=== PATIENT | male | born 1970 | race Hispanic/Latino ===

== ENCOUNTER 2018-11-03 18:06 | Emergency (ER) | payer SELFPAY ==
--- NOTE | 2018-11-03 18:20 | Emergency Department Report ---
Blank Doc - Documentation Documentation: This is a 47-year-old male that presents with redness and pain to left abdominal area. Stated believes it was a spider bite. Denies any other complaints or symptoms. This initial assessment diagnostic orders/clinical plan/treatment(s) is/are subject to change based on patient's health status, clinical progression and re- assessment by fellow clinical providers in the ED. Further treatment and workup at subsequent clinical providers discretion. Patient/guardians urged not to elope from ED s their condition may be serious if not clinically assessed and managed. Initial orders include: 1-Patient sent to [facility] for further evaluation and treatment
[2018-11-03] MEDS ORDERED: NACL 0.9% 1000 ML 1,000 ML IV ONE ×2 (21:55→23:11)
[2018-11-03] MEDS ORDERED: ZOFRAN IV ONE (21:55)
[2018-11-03] MEDS ORDERED: MORPHINE IV ONE (21:55)
--- NOTE | 2018-11-03 21:59 | Emergency Department Report ---
- General Chief complaint: Skin/Abscess/Foreign Body Stated complaint: BITE ON ABD/SWOLLEN Time Seen by Provider: 11/03/18 18:18 Source: patient Mode of arrival: Ambulatory Limitations: No Limitations - History of Present Illness Initial comments: 47-year-old male comes in for possible inset bite to the left side of abdomen. Patient reports redness and tenderness. Patient states this is been about 3-4 days. Patient reports he was cleaning out his garage. Days ago and feels he may have gotten bit by some insect. Patient thinks it may have been a spider. Patient denies any nausea or vomiting but reports he has had chills and feeling hot. He denies any allergies to medication reports he has diet- controlled hypertension. He currently takes no medications. MD complaint: insect bite/sting, abscess/boil -: days(s) (3-4) Tetanus Up to Date: unsure Severity: severe Severity scale (0 -10): 10 Quality: burning, aching, sharp Consistency: constant Improves with: none Worsens with: palpation, movement Associated symptoms: fever, chills, malaise Treatments Prior to Arrival: none - Related Data Previous Rx's Medication Instructions Recorded Last Taken Type Acetaminophen/Codeine [Tylenol 1 tab PO Q6H PRN #12 tab 11/04/18 Unknown Rx /Codeine # 3 tab] Cephalexin [Keflex] 500 mg PO BID #20 capsule 11/04/18 Unknown Rx Ibuprofen [Motrin 800 MG tab] 800 mg PO Q8HR PRN #30 tablet 11/04/18 Unknown Rx Allergies Allergy/AdvReac Type Severity Reaction Status Date / Time No Known Allergies Allergy Unverified 11/03/18 18:23 Abscess Boil HPI - HPI Chief Complaint: Skin/Abscess/Foreign Body Stated Complaint: BITE ON ABD/SWOLLEN Time Seen by Provider: 11/03/18 18:18 Home Medications: Previous Rx's Medication Instructions Recorded Last Taken Type Acetaminophen/Codeine [Tylenol 1 tab PO Q6H PRN #12 tab 11/04/18 Unknown Rx /Codeine # 3 tab] Cephalexin [Keflex] 500 mg PO BID #20 capsule 11/04/18 Unknown Rx Ibuprofen [Motrin 800 MG tab] 800 mg PO Q8HR PRN #30 tablet 11/04/18 Unknown Rx Allergies/Adverse Reactions: Allergies Allergy/AdvReac Type Severity Reaction Status Date / Time No Known Allergies Allergy Unverified 11/03/18 18:23 ED Review of Systems ROS: Stated complaint: BITE ON ABD/SWOLLEN Other details as noted in HPI Comment: All other systems reviewed and negative Constitutional: chills, fever Skin: rash ED Past Medical Hx - Past Medical History Hx Hypertension: Yes (diet controlled) Hx Dementia: Yes (diet controlled) - Surgical History Past Surgical History?: No - Social History Smoking Status: Former Smoker Substance Use Type: None - Medications Home Medications: Home Medications Medication Instructions Recorded Confirmed Last Taken Type Acetaminophen/Codeine [Tylenol 1 tab PO Q6H PRN #12 tab 11/04/18 Unknown Rx /Codeine # 3 tab] Cephalexin [Keflex] 500 mg PO BID #20 capsule 11/04/18 Unknown Rx Ibuprofen [Motrin 800 MG tab] 800 mg PO Q8HR PRN #30 tablet 11/04/18 Unknown Rx ED Physical Exam - General Limitations: No Limitations General appearance: alert, in no apparent distress - Eye Eye exam: Present: EOMI - ENT ENT exam: Present: mucous membranes moist - Neck Neck exam: Present: full ROM - Respiratory Respiratory exam: Present: normal lung sounds bilaterally. Absent: respiratory distress - Cardiovascular Cardiovascular Exam: Present: tachycardia - GI/Abdominal GI/Abdominal exam: Present: soft, tenderness. Absent: distended - Extremities Exam Extremities exam: Present: full ROM - Neurological Exam Neurological exam: Present: alert, oriented X3 - Psychiatric Psychiatric exam: Present: normal affect, normal mood - Expanded Skin Exam Expanded Type of lesion: Present: abscess Distribution of rash: abdomen Description of rash: Present: tenderness, erythematous, swelling, papular, blisters, indurated. Absent: fluctuant ED Course Vital Signs 11/03/18 11/03/18 11/03/18 18:19 22:43 22:44 Temperature 99.7 F H 99.5 F Pulse Rate 105 H 105 H Respiratory 18 16 16 Rate Blood Pressure 158/109 Blood Pressure 136/84 [Left] O2 Sat by Pulse 98 95 Oximetry ED Medical Decision Making - Lab Data Result diagrams: 11/03/18 22:05 11/03/18 22:05 - Radiology Data Radiology results: report reviewed FINAL REPORT PROCEDURE: CT ABDOMEN PELVIS W CON TECHNIQUE: Computerized axial tomography of the abdomen and pelvis was performed after the IV injection of iodinated nonionic contrast. HISTORY: abdominal abscess pain redness and tenderness LEFT SIDE MID ABD COMPARISON: No prior studies are available for comparison. FINDINGS: Visualized lower thorax: No significant abnormality. Liver: Liver is enlarged and fatty. There is no discrete mass.. Spleen: Normal size and attenuation. Gallbladder and biliary system: Normal. Pancreas: Normal. Adrenals: Normal. Kidneys: Normal. GI tract: There is no bowel obstruction, colitis or enteritis. The appendix is normal.. Lymph nodes and mesentery: Normal. Vasculature: Normal. Bladder: Normal. Reproductive organs: Normal. Peritoneum: There is no ascites, free air, abscess or adenopathy.. Musculoskeletal structures: No significant abnormality. Other: There is skin thickening and induration of the subcutaneous fat in the anterior/left side of the abdomen. This suggests cellulitis. There are enlarged reactive left inguinal lymph nodes. There is no discrete mass or abscess. There is no subcutaneous air or foreign body.. IMPRESSION: Liver is enlarged and fatty. There is no discrete mass.. There is no bowel obstruction, colitis or enteritis. The appendix is normal.. There is no ascites, free air, abscess or adenopathy.. There is skin thickening and induration of the subcutaneous fat in the anterior/left side of the abdomen. This suggests cellulitis. There are enlarged reactive left inguinal lymph nodes. There is no discrete mass or abscess. There is no subcutaneous air or foreign body.. Transcribed By: CO Dictated By: MAIA LUNDY MD Electronically Authenticated By: MAIA LUNDY MD Signed Date/Time: 11/04/1834 DD/ TD/TT: 11/04/1832 - Medical Decision Making Patient has been evaluated by this provider in fast track. CBC CMP lactic acid CRP ESR urinalysis CT of abdomen of contrast, blood cultures 2 Patient came back with elevated lactic acid of 3.0, CRP of 8.5, mildly elevated WBCs on serum, CT of abdomen shows cellulitis. Elevated blood glucose of 512 Patient was resuscitated with normal saline, clindamycin 600 mg IV, 8 units of regular insulin IV, morphine and Zofran for pain and nausea. Patient's blood glucose decreased to 212, lactic acid normal last too 1.30, discussed case with Dr. Gaines. Patient be discharged home on Keflex by mouth 500 mg twice a day for 10 days instructions on diet modification for elevated blood glucose with a referral to primary care provider if for workup for diabetes and follow-up for cellulitis. Patient can take Tylenol and or Motrin for pain management. Patient needs to increase his fluid intake. Information for ADA diet be provided to patient. - Differential Diagnosis abscess, brown recluse bite, cellulitis Critical Care Time: Yes Critical care time in (mins) excluding proc time.: 60 Critical care attestation.: If time is entered above; I have spent that time in minutes in the direct care of this critically ill patient, excluding procedure time. ED Disposition Clinical Impression: Hyperglycemia, Cellulitis of abdominal wall, Sepsis due to cellulitis Disposition: DC-01 TO HOME OR SELFCARE Is pt being admited?: No Does the pt Need Aspirin: No Condition: Stable Instructions: Cellulitis (ED), Meal Planning with Diabetes Exchanges (DC) Additional Instructions: Antibiotics as prescribed pain medication as needed. Report from to follow up with the primary care provider as it appears that he may be coming down with diabetes. Prescriptions: Acetaminophen/Codeine [Tylenol /Codeine # 3 tab] 1 tab PO Q6H PRN #12 tab PRN Reason: Pain , Severe (7-10) Cephalexin [Keflex] 500 mg PO BID #20 capsule Ibuprofen [Motrin 800 MG tab] 800 mg PO Q8HR PRN #30 tablet PRN Reason: Pain , Severe (7-10) Referrals: GOKUL REECE MD [Primary Care Provider] - 3-5 Days [facility] [Outside] - 3-5 Days [facility] [Outside] - 3-5 Days [facility] [Outside] - 3-5 Days Forms: Work/School Release Form(ED)
[2018-11-03 22:51] LABS: Basophils # (Auto) 0.1 K/mm3 (0.0-0.1); Basophils % (Auto) 0.6 % (0.0-1.8); Eosinophils # (Auto) 0.1 K/mm3 (0.0-0.4); Eosinophils % (Auto) 0.8 % (0.0-4.3); Hematocrit 44.8 % (35.5-45.6); Hemoglobin 14.7 gm/dl (11.8-15.2); Lymphocytes # (Auto) 1.7 K/mm3 (1.2-5.4); Lymphocytes % (Auto) 15.6 % (13.4-35.0); Mean Corpuscular HGB Conc 33 % (32-34); Mean Corpuscular Volume 90 fl (84-94); Monocytes # (Auto) 0.9 K/mm3 (0.0-0.8); Platelet Count 284 K/mm3 (140-440); Red Blood Count 4.98 M/mm3 (3.65-5.03); Red Cell Distribution Width 12.7 % (13.2-15.2)
[2018-11-03 23:02] LABS: Alanine Aminotransferase 16 units/L (7-56); BUN/Creatinine Ratio 13; Blood Urea Nitrogen 10 mg/dL (9-20); Calcium 9.2 mg/dL (8.4-10.2); Hemolysis Index 4
[2018-11-03] MEDS ORDERED: HumuLIN R IV ONE (23:11)
[2018-11-03] MEDS ORDERED: CLEOCIN 600 MG/50 mL 600 MG/50 ML BAG IV ONE (23:15)
[2018-11-03 23:24] LABS: Erythrocyte Sedimentation Rate 31 mm/Hr (0-20)
--- NOTE | 2018-11-04 00:35 | Cat Scan Report ---
FINAL REPORT PROCEDURE: CT ABDOMEN PELVIS W CON TECHNIQUE: Computerized axial tomography of the abdomen and pelvis was performed after the IV inject ion of iodinated nonionic contrast. HISTORY: abdominal abscess pain redness and tenderness LEFT SIDE MID ABD COMPARISON: No prior studies are available for comparison. FINDINGS: Visualized lower thorax: No significant abnormality. Liver: Liver is enlarged and fatty. There is no discrete mass.. Spleen: Normal size and attenuation. Gallbladder and biliary system: Normal. Pancreas: Normal. Adrenals: Normal. Kidneys: Normal. GI tract: There is no bowel obstruction, colitis or enteritis. The appendix is normal.. Lymph nodes and mesentery: Normal. Vasculature: Normal. Bladder: Normal. Reproductive organs: Normal. Peritoneum: There is no ascites, free air, abscess or adenopathy.. Musculoskeletal structures: No significant abnormality. Other: There is skin thickening and induration of the subcutaneous fat in the anterior/left side of t he abdomen. This suggests cellulitis. There are enlarged reactive left inguinal lymph nodes. There is no discrete mass or abscess. There is no subcutaneous air or foreign body.. IMPRESSION: Liver is enlarged and fatty. There is no discrete mass.. There is no bowel obstruction, colitis or enteritis. The appendix is normal.. There is no ascites, free air, abscess or adenopathy.. There is skin thickening and induration of the subcutaneous fat in the anterior/left side of the abdo men. This suggests cellulitis. There are enlarged reactive left inguinal lymph nodes. There is no dis crete mass or abscess. There is no subcutaneous air or foreign body..
[2018-11-04 01:28] LABS: Bilirubin,Urine NEG (Negative); Blood,Urine NEG (Negative); Color,Urine Straw (Yellow); Protein,Urine <15 mg/dL mg/dL (Negative); Urobilinogen,Urine < 2.0 mg/dL (<2.0); WBC,Urine < 1.0 /HPF (0.0-6.0)
[2018-11-04 02:05] VITALS: BP 152/98
== END 2018-11-04 02:17 | disposition home or self-care (01) ==
LOC: ED 18:06
DX: L03.311 Cellulitis of abdominal wall (principal); A41.89 Other specified sepsis; L03.90 Cellulitis, unspecified; R73.9 Hyperglycemia, unspecified
CPT/HCPCS: 36415; 74177; 80053; 81001; 82140; 82962; 85025; 85652; 86140; 87040; 96365; 96375; 99291; J2270; J2405; J7030; Q9967; J1815

== ENCOUNTER 2019-03-04 13:32 | Emergency (ER) | payer SELFPAY ==
[2019-03-04 13:43] VITALS: BP 158/116
--- NOTE | 2019-03-04 13:44 | Emergency Department Report ---
- General Chief complaint: Skin/Abscess/Foreign Body Stated complaint: POSS ABCESS Time Seen by Provider: 03/04/19 13:39 Source: patient Mode of arrival: Ambulatory Limitations: No Limitations - History of Present Illness Initial comments: This is a 48-year-old male that presents with left hip area redness and pain. Stated is unsure if something bite him. Patient denies any pus or drainage. denies any fever, chills, headache, stiff neck, nausea, vomiting, chest pain, shortness of breathe, numbness or tingling. Patient denies any allergies. MD complaint: insect bite/sting -: days(s) Severity: mild Severity scale (0 -10): 8 Quality: aching Consistency: constant Improves with: none Worsens with: none Associated symptoms: denies other symptoms Treatments Prior to Arrival: none - Related Data Previous Rx's Medication Instructions Recorded Last Taken Type Acetaminophen/Codeine [Tylenol 1 tab PO Q6H PRN #12 tab 11/04/18 Unknown Rx /Codeine # 3 tab] Cephalexin [Keflex] 500 mg PO BID #20 capsule 11/04/18 Unknown Rx Ibuprofen [Motrin 800 MG tab] 800 mg PO Q8HR PRN #30 tablet 11/04/18 Unknown Rx Acetaminophen/Codeine [Tylenol 1 tab PO Q6H PRN #12 tab 03/04/19 Unknown Rx /Codeine # 3 tab] Clindamycin [Clindamycin CAP] 300 mg PO Q8H #21 cap 03/04/19 Unknown Rx Allergies Allergy/AdvReac Type Severity Reaction Status Date / Time No Known Allergies Allergy Verified 03/04/19 13:34 Abscess Boil HPI - HPI Chief Complaint: Skin/Abscess/Foreign Body Stated Complaint: POSS ABCESS Time Seen by Provider: 03/04/19 13:39 Home Medications: Previous Rx's Medication Instructions Recorded Last Taken Type Acetaminophen/Codeine [Tylenol 1 tab PO Q6H PRN #12 tab 11/04/18 Unknown Rx /Codeine # 3 tab] Cephalexin [Keflex] 500 mg PO BID #20 capsule 11/04/18 Unknown Rx Ibuprofen [Motrin 800 MG tab] 800 mg PO Q8HR PRN #30 tablet 11/04/18 Unknown Rx Acetaminophen/Codeine [Tylenol 1 tab PO Q6H PRN #12 tab 03/04/19 Unknown Rx /Codeine # 3 tab] Clindamycin [Clindamycin CAP] 300 mg PO Q8H #21 cap 03/04/19 Unknown Rx Allergies/Adverse Reactions: Allergies Allergy/AdvReac Type Severity Reaction Status Date / Time No Known Allergies Allergy Verified 03/04/19 13:34 ED Review of Systems ROS: Stated complaint: POSS ABCESS Other details as noted in HPI Constitutional: denies: chills, fever Eyes: denies: eye pain, eye discharge, vision change ENT: denies: ear pain, throat pain Respiratory: denies: cough, shortness of breath, wheezing Cardiovascular: denies: chest pain, palpitations Endocrine: no symptoms reported Gastrointestinal: denies: abdominal pain, nausea, diarrhea Genitourinary: denies: urgency, dysuria Musculoskeletal: denies: back pain, joint swelling, arthralgia Skin: denies: rash, lesions Neurological: denies: headache, weakness, paresthesias Psychiatric: denies: anxiety, depression Hematological/Lymphatic: denies: easy bleeding, easy bruising ED Past Medical Hx - Past Medical History Previous Medical History?: No Hx Hypertension: Yes (diet controlled) Hx Dementia: Yes (diet controlled) - Surgical History Past Surgical History?: No - Social History Smoking Status: Former Smoker Substance Use Type: None - Medications Home Medications: Home Medications Medication Instructions Recorded Confirmed Last Taken Type Acetaminophen/Codeine [Tylenol 1 tab PO Q6H PRN #12 tab 11/04/18 Unknown Rx /Codeine # 3 tab] Cephalexin [Keflex] 500 mg PO BID #20 capsule 11/04/18 Unknown Rx Ibuprofen [Motrin 800 MG tab] 800 mg PO Q8HR PRN #30 tablet 11/04/18 Unknown Rx Acetaminophen/Codeine [Tylenol 1 tab PO Q6H PRN #12 tab 03/04/19 Unknown Rx /Codeine # 3 tab] Clindamycin [Clindamycin CAP] 300 mg PO Q8H #21 cap 03/04/19 Unknown Rx ED Physical Exam - General Limitations: No Limitations General appearance: alert, in no apparent distress - Head Head exam: Present: atraumatic, normocephalic - Extremities Exam Extremities exam: Present: normal inspection, full ROM, tenderness, normal capillary refill, other (3 cm x 3 cm circular erythema with tenderness. No abscess. No cellulitis. No pus or drainge.). Absent: joint swelling - Back Exam Back exam: Present: normal inspection, full ROM - Neurological Exam Neurological exam: Present: alert, oriented X3 - Psychiatric Psychiatric exam: Present: normal affect, normal mood - Skin Skin exam: Present: warm, dry, intact, normal color. Absent: rash ED Course - Reevaluation(s) Reevaluation #1: 03/04/19 13:41 Patient is speaking in full sentences with no signs of distress noted. ED Medical Decision Making - Medical Decision Making This is a 48-year-old male that presents with cellulitis. Patient is stable and was examined by me. The area of redness and cellulitis has been outlined with a permanent marker. Patient will be discharged with Clinda. Patient was instructed to Follow-up with a primary care doctor in 3-5 days or if symptoms worsen and continue return to emergency room as soon as possible. At time of discharge, the patient does not seem toxic or ill in appearance. No acute signs of distress noted. Patient agrees to discharge treatment plan of care. No further questions noted by the patient. Critical care attestation.: If time is entered above; I have spent that time in minutes in the direct care of this critically ill patient, excluding procedure time. ED Disposition Clinical Impression: Cellulitis Disposition: DC-01 TO HOME OR SELFCARE Is pt being admited?: No Does the pt Need Aspirin: No Condition: Stable Instructions: Cellulitis (ED), Acetaminophen/Codeine (By mouth) Additional Instructions: Follow-up with a primary care doctor in 3-5 days or if symptoms worsen and continue return to the emergency department as soon as possible. Prescriptions: Clindamycin [Clindamycin CAP] 300 mg PO Q8H #21 cap Acetaminophen/Codeine [Tylenol /Codeine # 3 tab] 1 tab PO Q6H PRN #12 tab PRN Reason: Pain , Severe (7-10) Referrals: PRIMARY CARE, [Referring] - 3-5 Days MAURICIO SUN MD [Staff Physician] - 3-5 Days [facility] [Outside] - 3-5 Days [facility] [Outside] - 3-5 Days Forms: Work/School Release Form(ED)
== END 2019-03-04 14:19 | disposition home or self-care (01) ==
LOC: ED 13:32
DX: L03.115 Cellulitis of right lower limb (principal); I10 Essential (primary) hypertension
CPT/HCPCS: 99282

== ENCOUNTER 2019-03-06 09:42 | Inpatient (IN) | payer SELFPAY ==
--- NOTE | 2019-03-06 09:49 | Event Note ---
ED Screening Note ED Screening Note: HERE 2 DAYS AGO; SEEN BY DANA; SENT HOME ON CLINDA WORSENING L FLANK ABSCESS AND CELLULITIS WITH PAIN RAD TO LEG POS CHILLS TACHY IN TRIAGE ? BITE PER PT TAKING CLINDA This initial assessment/diagnostic orders/clinical plan/treatment(s) is/are subject to change based on patients health status, clinical progression and re- assessment by fellow clinical providers in the ED. Further treatment and workup at subsequent clinical providers discretion. Patient/guardian urged not to elope from the ED as their condition may be serious if not clinically assessed and managed. Initial orders include:
[2019-03-06] MEDS ORDERED: VANCOMYCIN/NS 1 GM/250 ML 1 GM/250 ML BAG IV ONE ×3 (10:09→11:00)
--- NOTE | 2019-03-06 10:15 | Emergency Department Report ---
- General Chief complaint: Skin/Abscess/Foreign Body Stated complaint: POSS SPIDER BITE Time Seen by Provider: 03/06/19 10:04 Source: patient Mode of arrival: Ambulatory Limitations: No Limitations - History of Present Illness Initial comments: Patient is a 48-year-old male with no significant past medical history except for previous history of diabetes for which she moves approximately 110 bound and stated that since then his blood sugar was fine. Patient presented to the ER complaining of left flank skin lesion for the last 5 days. Patient was seen here 2 days ago prescribed clindamycin but patient stated that his symptoms are not improving. MD complaint: abscess/boil -: days(s) (5) Location: back - Related Data Previous Rx's Medication Instructions Recorded Last Taken Type Acetaminophen/Codeine [Tylenol 1 tab PO Q6H PRN #12 tab 11/04/18 Unknown Rx /Codeine # 3 tab] Cephalexin [Keflex] 500 mg PO BID #20 capsule 11/04/18 Unknown Rx Ibuprofen [Motrin 800 MG tab] 800 mg PO Q8HR PRN #30 tablet 11/04/18 Unknown Rx Acetaminophen/Codeine [Tylenol 1 tab PO Q6H PRN #12 tab 03/04/19 Unknown Rx /Codeine # 3 tab] Clindamycin [Clindamycin CAP] 300 mg PO Q8H #21 cap 03/04/19 Unknown Rx Allergies Allergy/AdvReac Type Severity Reaction Status Date / Time No Known Allergies Allergy Verified 03/06/19 09:42 Abscess Boil HPI - HPI Chief Complaint: Skin/Abscess/Foreign Body Stated Complaint: POSS SPIDER BITE Time Seen by Provider: 03/06/19 10:04 Home Medications: Previous Rx's Medication Instructions Recorded Last Taken Type Acetaminophen/Codeine [Tylenol 1 tab PO Q6H PRN #12 tab 11/04/18 Unknown Rx /Codeine # 3 tab] Cephalexin [Keflex] 500 mg PO BID #20 capsule 11/04/18 Unknown Rx Ibuprofen [Motrin 800 MG tab] 800 mg PO Q8HR PRN #30 tablet 11/04/18 Unknown Rx Acetaminophen/Codeine [Tylenol 1 tab PO Q6H PRN #12 tab 03/04/19 Unknown Rx /Codeine # 3 tab] Clindamycin [Clindamycin CAP] 300 mg PO Q8H #21 cap 03/04/19 Unknown Rx Allergies/Adverse Reactions: Allergies Allergy/AdvReac Type Severity Reaction Status Date / Time No Known Allergies Allergy Verified 03/06/19 09:42 ED Review of Systems ROS: Stated complaint: POSS SPIDER BITE Other details as noted in HPI Comment: All other systems reviewed and negative Constitutional: denies: chills, fever Respiratory: denies: cough, orthopnea, shortness of breath, SOB with exertion, SOB at rest, wheezing Cardiovascular: denies: chest pain, palpitations Gastrointestinal: denies: abdominal pain, nausea, vomiting, diarrhea, constipation, hematemesis, melena Skin: lesions Neurological: denies: headache, weakness, numbness, paresthesias, confusion ED Past Medical Hx - Past Medical History Hx Hypertension: Yes (diet controlled) Hx Dementia: Yes (diet controlled) - Social History Smoking Status: Never Smoker Substance Use Type: Alcohol - Medications Home Medications: Home Medications Medication Instructions Recorded Confirmed Last Taken Type Acetaminophen/Codeine [Tylenol 1 tab PO Q6H PRN #12 tab 11/04/18 Unknown Rx /Codeine # 3 tab] Cephalexin [Keflex] 500 mg PO BID #20 capsule 11/04/18 Unknown Rx Ibuprofen [Motrin 800 MG tab] 800 mg PO Q8HR PRN #30 tablet 11/04/18 Unknown Rx Acetaminophen/Codeine [Tylenol 1 tab PO Q6H PRN #12 tab 03/04/19 Unknown Rx /Codeine # 3 tab] Clindamycin [Clindamycin CAP] 300 mg PO Q8H #21 cap 03/04/19 Unknown Rx ED Physical Exam - General Limitations: No Limitations General appearance: alert, in no apparent distress - Head Head exam: Present: atraumatic, normocephalic, normal inspection - Eye Eye exam: Present: normal appearance, PERRL - ENT ENT exam: Present: normal exam, normal orophraynx, mucous membranes moist - Neck Neck exam: Present: normal inspection, full ROM. Absent: tenderness, meningismus, lymphadenopathy, thyromegaly - Respiratory Respiratory exam: Present: normal lung sounds bilaterally - Cardiovascular Cardiovascular Exam: Present: regular rate, normal rhythm, normal heart sounds - GI/Abdominal GI/Abdominal exam: Present: soft, normal bowel sounds. Absent: distended, tenderness, guarding, rebound, rigid, organomegaly, mass, bruit, pulsatile mass, hernia - Extremities Exam Extremities exam: Present: normal inspection, full ROM, normal capillary refill. Absent: calf tenderness - Neurological Exam Neurological exam: Present: alert, oriented X3, CN II-XII intact, normal gait, reflexes normal - Psychiatric Psychiatric exam: Present: normal mood - Skin Skin exam: Present: other (3 cm 2 cm induration and redness to the left flank just above the iliac crest, nonfluctuant.) ED Course Vital Signs 03/06/19 09:46 Temperature 98.9 F Pulse Rate 103 H Respiratory 18 Rate Blood Pressure 150/98 O2 Sat by Pulse 98 Oximetry ED Medical Decision Making - Lab Data Result diagrams: 03/06/19 10:00 03/06/19 10:00 - Medical Decision Making Patient is a 48-year-old male with no significant past medical history except for previous history of diabetes for which she moves approximately 110 bound and stated that since then his blood sugar was fine. Patient presented to the ER complaining of left flank skin lesion for the last 5 days. Patient was seen here 2 days ago prescribed clindamycin but patient stated that his symptoms are not improving. The patient received 2 g of vancomycin. Patient found to have a blood sugar of 460. Patient is not on any diabetic medication. Patient obviously failed outpatient treatment for cellulitis. Discussed the patient was Dr. Kimball, he agreed to admit the patient to medical service. Critical care attestation.: If time is entered above; I have spent that time in minutes in the direct care of this critically ill patient, excluding procedure time. ED Disposition Clinical Impression: Cellulitis, Hyperglycemia, Hyponatremia Disposition: OP ADMIT IP TO THIS HOSP Is pt being admited?: Yes Condition: Stable
[2019-03-06 10:28] LABS: Hematocrit 44.8 % (35.5-45.6); Hemoglobin 15.4 gm/dl (11.8-15.2); Mean Corpuscular HGB Conc 34 % (32-34); Mean Corpuscular Volume 90 fl (84-94); Platelet Count 277 K/mm3 (140-440); Red Blood Count 4.98 M/mm3 (3.65-5.03); Red Cell Distribution Width 12.7 % (13.2-15.2)
[2019-03-06 10:30] LABS: BUN/Creatinine Ratio 13; Blood Urea Nitrogen 12 mg/dL (9-20); Calcium 9.3 mg/dL (8.4-10.2); Hemolysis Index 12
[2019-03-06] MEDS ORDERED: VANCOMYCIN 2,000 MG in NACL 0.9% 500 ML 500 ML IV ONE ×2 (10:30→22:00)
[2019-03-06] MEDS ORDERED: HumuLIN R IV ONE ×2 (11:47→15:40)
[2019-03-06] MEDS ORDERED: ZOFRAN IV ONE (12:14)
[2019-03-06] MEDS ORDERED: MORPHINE IV ONE (12:14)
[2019-03-06] MEDS ORDERED: NACL 0.9% 1000 ML 1,000 ML IV ONE (12:14)
[2019-03-06] MEDS ORDERED: HumuLIN R ONE (16:09)
[2019-03-06] MEDS ORDERED: ZOFRAN IV PRN (17:55)
[2019-03-06] MEDS ORDERED: SODIUM CHLORIDE FLUSH SYRINGE 10 ML IV PRN (17:55)
[2019-03-06] MEDS ORDERED: TYLENOL PO PRN (17:55)
--- NOTE | 2019-03-06 17:55 | History and Physical Report ---
History of Present Illness Date of examination: 03/06/19 Date of admission: 03/06/19 13:27 Chief complaint: Abscess L Flank for 1 week History of present illness: 48-year-old male with no significant past medical history except for previous history of diabetes comes in for L Flank redness and pain. Patient was seen in this ER and was prescribed Clindamycin for possible early abscess just avbove Lt Iliac crest. Has poorly contolled Diabetes b/c of noncompliance No fever or chills Past Medical History Hx Hypertension: Yes (diet controlled) Hx Dementia: Yes (diet controlled) SURGICAL History no Social History Smoking Status: Never Smoker Substance Use Type: Alcohol FH N/a Review of Systems ROS: Stated complaint: POSS SPIDER BITE Other details as noted in HPI Comment: All other systems reviewed and negative Constitutional: denies: chills, fever Respiratory: denies: cough, orthopnea, shortness of breath, SOB with exertion, SOB at rest, wheezing Cardiovascular: denies: chest pain, palpitations Gastrointestinal: denies: abdominal pain, nausea, vomiting, diarrhea, constipation, hematemesis, melena Skin: lesions Neurological: denies: headache, weakness, numbness, paresthesias, confusion Medications and Allergies Allergies Allergy/AdvReac Type Severity Reaction Status Date / Time No Known Allergies Allergy Verified 03/06/19 09:42 Home Medications Medication Instructions Recorded Confirmed Last Taken Type Clindamycin [Clindamycin CAP] 300 mg PO Q8H #21 cap 03/04/19 03/06/19 03/06/19 04:00 Rx Exam - Constitutional Vitals: Temp Pulse Resp BP Pulse Ox 99.6 F 100 H 22 145/85 97 03/06/19 17:04 03/06/19 17:04 03/06/19 17:04 03/06/19 17:04 03/06/19 17:04 General appearance: Present: no acute distress, well-nourished - EENT Eyes: Present: PERRL ENT: hearing intact, clear oral mucosa - Neck Neck: Present: supple, normal ROM - Respiratory Respiratory effort: normal Respiratory: bilateral: CTA - Cardiovascular Heart rate: 78 Rhythm: regular Heart Sounds: Present: S1 & S2. Absent: rub, click - Extremities Extremities: no ischemia, pulses symmetrical, No edema Peripheral Pulses: within normal limits - Abdominal General gastrointestinal: Present: soft, tender, non-distended, normal bowel sounds, other (Abscess L Flank just above L iliac crest 5 cm x 5cm) Male genitourinary: Present: normal - Integumentary Integumentary: Present: clear, warm, dry - Musculoskeletal Musculoskeletal: gait normal, strength equal bilaterally - Psychiatric Psychiatric: appropriate mood/affect, intact judgment & insight - Neurologic Neurologic: CNII-XII intact, moves all extremities Results - Labs CBC & Chem 7: 03/06/19 10:00 03/06/19 10:00 Labs: Laboratory Last Values WBC 12.3 K/mm3 (4.5-11.0) H 03/06/19 10:00 RBC 4.98 M/mm3 (3.65-5.03) 03/06/19 10:00 Hgb 15.4 gm/dl (11.8-15.2) H 03/06/19 10:00 Hct 44.8 % (35.5-45.6) 03/06/19 10:00 MCV 90 fl (84-94) 03/06/19 10:00 MCH 31 pg (28-32) 03/06/19 10:00 MCHC 34 % (32-34) 03/06/19 10:00 RDW 12.7 % (13.2-15.2) L 03/06/19 10:00 Plt Count 277 K/mm3 (140-440) 03/06/19 10:00 Sodium 129 mmol/L (137-145) L 03/06/19 10:00 Potassium 4.7 mmol/L (3.6-5.0) 03/06/19 10:00 Chloride 88.7 mmol/L (98-107) L 03/06/19 10:00 Carbon Dioxide 25 mmol/L (22-30) 03/06/19 10:00 20 mmol/L 03/06/19 10:00 BUN 12 mg/dL (9-20) 03/06/19 10:00 0.9 mg/dL (0.8-1.5) 03/06/19 10:00 Estimated GFR > 60 ml/min 03/06/19 10:00 13 % 03/06/19 10:00 Glucose 460 mg/dL (75-100) H 03/06/19 10:00 POC Glucose 233 (70-105) H 03/06/19 17:14 Calcium 9.3 mg/dL (8.4-10.2) 03/06/19 10:00 Assessment and Plan Advance Directives: Yes (FC) VTE prophylaxis?: Chemical Plan of care discussed with patient/family: Yes - Patient Problems (1) Carbuncle Current Visit: Yes Status: Acute Plan to address problem: On L flank IV Unasyn and IV Vancomucin Surgery consult (2) T2DM (type 2 diabetes mellitus) Current Visit: Yes Status: Chronic Qualifiers: Diabetes mellitus halfway insulin use: unspecified rodent exterminator insulin use status Plan to address problem: Poorly controlled Patient started on Novalog 70/30 bid and dose to be adjusted by primary team Novalog 70/30 vials available in [facility] for 25 to 30 $4 without prescription (3) DVT prophylaxis Current Visit: Yes Status: Acute Plan to address problem: Onlovenox
[2019-03-06] MEDS ORDERED: D50W (25GM) Syringe IV PRN (17:56)
[2019-03-06] MEDS ORDERED: IBUPROFEN PO PRN (17:56)
[2019-03-06] MEDS ORDERED: NACL 0.9% 1000 ML 1,000 ML IV SCH (18:00)
[2019-03-06] MEDS: HumuLIN R SUB-Q SCH ×2 (18:19→21:38)
[2019-03-06] MEDS ORDERED: VANCOMYCIN PHARMACY TO DOSE IV SCH (19:00)
[2019-03-06] MEDS: DILAUDID IV PRN (19:43)
[2019-03-06] MEDS: UNASYN/NS 3 GM/100 ML 3 GM/100 ML BAG IV SCH (19:44)
[2019-03-06] MEDS: PEPCID PO SCH (21:15)
[2019-03-06] MEDS: SODIUM CHLORIDE FLUSH SYRINGE 10 ML IV SCH (21:16)
[2019-03-06] MEDS ORDERED: HumaLOG SUB-Q SCH (22:00)
[2019-03-07] MEDS: UNASYN/NS 3 GM/100 ML 3 GM/100 ML BAG IV SCH ×4 (00:18→17:15)
[2019-03-07 05:51] LABS: Creatinine,Urine 56.4 mg/dL (0.1-20.0); Microalbumin/Creatinine Ratio 60.2 ug/mg
[2019-03-07 07:53] LABS: Basophils % (Auto) 0.6 % (0.0-1.8); Eosinophils # (Auto) 0.1 K/mm3 (0.0-0.4); Eosinophils % (Auto) 1.7 % (0.0-4.3); Hemoglobin 14.2 gm/dl (11.8-15.2); Lymphocytes # (Auto) 1.4 K/mm3 (1.2-5.4); Lymphocytes % (Auto) 19.5 % (13.4-35.0); Mean Corpuscular HGB Conc 35 % (32-34); Mean Corpuscular Volume 89 fl (84-94); Monocytes # (Auto) 0.8 K/mm3 (0.0-0.8); Monocytes % (Auto) 10.5 % (0.0-7.3); Platelet Count 261 K/mm3 (140-440); Red Blood Count 4.48 M/mm3 (3.65-5.03); Red Cell Distribution Width 12.8 % (13.2-15.2)
[2019-03-07 08:19] LABS: Alanine Aminotransferase 11 units/L (7-56); Albumin 3.3 g/dL (3.9-5); BUN/Creatinine Ratio 16; Blood Urea Nitrogen 11 mg/dL (9-20); Calcium 8.4 mg/dL (8.4-10.2); Hemolysis Index 1
--- NOTE | 2019-03-07 08:46 | Progress Note ---
Assessment and Plan Full consult dictated 48 y/o DM male. c/o L flank pain PE L flank abscess with surrounding cellulitis imp as above for I&D History of Present Illness Date of examination: 03/06/19 Date of admission: 03/06/19 13:27 Chief complaint: Abscess L Flank for 1 week History of present illness: 48-year-old male with no significant past medical history except for previous history of diabetes comes in for L Flank redness and pain. Patient was seen in this ER and was prescribed Clindamycin for possible early abscess just avbove Lt Iliac crest. Has poorly contolled Diabetes b/c of noncompliance No fever or chills Past Medical History Hx Hypertension: Yes (diet controlled) Hx Dementia: Yes (diet controlled) SURGICAL History no Social History Smoking Status: Never Smoker Substance Use Type: Alcohol Selected Entries 03/07/19 03/07/19 00:32 01:01 Temperature 98.3 F Respiratory 20 Rate Blood Pressure 134/77 [Right] Laboratory Tests 03/06/19 03/07/19 03/07/19 10:00 06:35 06:35 WBC 12.3 H 7.3 Hgb 14.2 Hct 40.0 Sodium 136 L D Potassium 3.8 Chloride 95.6 L BUN 11 Creatinine 0.7 L Laboratory Tests 03/06/19 03/07/19 10:00 06:35 Glucose 460 H 279 H Objective Vital Signs - 12hr 03/06/19 03/06/19 03/07/19 21:16 21:48 00:31 Temperature 98.6 F Pulse Rate 91 H 87 Respiratory 18 Rate Blood Pressure 145/99 Blood Pressure [Right] O2 Sat by Pulse 95 100 Oximetry 03/07/19 03/07/19 00:32 01:01 Temperature 98.3 F Pulse Rate Respiratory 20 Rate Blood Pressure Blood Pressure 134/77 [Right] O2 Sat by Pulse Oximetry - Labs 03/07/19 06:35 03/07/19 06:35 Diabetes panel 03/06/19 03/06/19 03/07/19 Range/Units 10:00 10:00 06:35 Sodium 129 L 136 L D (137-145) mmol/L Potassium 4.7 3.8 (3.6-5.0) mmol/L Chloride 88.7 L 95.6 L (98-107) mmol/L Carbon Dioxide 25 23 (22-30) mmol/L BUN 12 11 (9-20) mg/dL Creatinine 0.9 0.7 L (0.8-1.5) mg/dL Glucose 460 H 279 H (75-100) mg/dL Hemoglobin A1c 12.9 H (4-6) % Calcium 9.3 8.4 (8.4-10.2) mg/dL AST 10 (5-40) units/L ALT 11 (7-56) units/L Alkaline Phosphatase 82 (35-129) units/L Total Protein 6.6 (6.3-8.2) g/dL Albumin 3.3 L (3.9-5) g/dL Calcium panel 03/06/19 03/07/19 Range/Units 10:00 06:35 Calcium 9.3 8.4 (8.4-10.2) mg/dL Albumin 3.3 L (3.9-5) g/dL Pituitary panel 03/06/19 03/07/19 Range/Units 10:00 06:35 Sodium 129 L 136 L D (137-145) mmol/L Potassium 4.7 3.8 (3.6-5.0) mmol/L Chloride 88.7 L 95.6 L (98-107) mmol/L Carbon Dioxide 25 23 (22-30) mmol/L BUN 12 11 (9-20) mg/dL Creatinine 0.9 0.7 L (0.8-1.5) mg/dL Glucose 460 H 279 H (75-100) mg/dL Calcium 9.3 8.4 (8.4-10.2) mg/dL Adrenal panel 03/06/19 03/07/19 Range/Units 10:00 06:35 Sodium 129 L 136 L D (137-145) mmol/L Potassium 4.7 3.8 (3.6-5.0) mmol/L Chloride 88.7 L 95.6 L (98-107) mmol/L Carbon Dioxide 25 23 (22-30) mmol/L BUN 12 11 (9-20) mg/dL Creatinine 0.9 0.7 L (0.8-1.5) mg/dL Glucose 460 H 279 H (75-100) mg/dL Calcium 9.3 8.4 (8.4-10.2) mg/dL Total Bilirubin 0.40 (0.1-1.2) mg/dL AST 10 (5-40) units/L ALT 11 (7-56) units/L Alkaline Phosphatase 82 (35-129) units/L Total Protein 6.6 (6.3-8.2) g/dL Albumin 3.3 L (3.9-5) g/dL
--- NOTE | 2019-03-07 09:09 | Progress Note ---
Assessment and Plan Assessment and plan: Abscess left flank Admitted Surgeon consulted. I discussed with Dr. Harjeet Randhawa Unasyn and vancomycin For I and D Diabetes mellitus type 2 Uncontrolled Cont Novolin 70/30 bid and sliding scale Full code status History Interval history: Left flank abscess pain left flank Hospitalist Physical - Physical exam Narrative exam: Gen: Not in acute distress, lying in bed,obese HEENT: Normocephalic, atraumatic Neck: supple, no JVD Heart: S1 and S2 reg, no murmurs, rubs or gallop Lungs: Clear, no crackles, no wheeze Abd: soft, abscess lower part left flank, normal BS Ext: No edema, no clubbing, no cyanosis, Neuro: Awake,alert, oriented x 3, moves all ext, non focal Psych:Normal mood - Constitutional Vitals: Temp Pulse Resp BP Pulse Ox 98.3 F 87 20 134/77 100 03/07/19 00:32 03/07/19 00:31 03/07/19 00:32 03/07/19 01:01 03/07/19 00:31 General appearance: Present: no acute distress, well-nourished Results - Labs CBC & Chem 7: 03/07/19 06:35 03/07/19 06:35 Labs: Laboratory Last Values WBC 7.3 K/mm3 (4.5-11.0) 03/07/19 06:35 RBC 4.48 M/mm3 (3.65-5.03) 03/07/19 06:35 Hgb 14.2 gm/dl (11.8-15.2) 03/07/19 06:35 Hct 40.0 % (35.5-45.6) 03/07/19 06:35 MCV 89 fl (84-94) 03/07/19 06:35 MCH 32 pg (28-32) 03/07/19 06:35 MCHC 35 % (32-34) H 03/07/19 06:35 RDW 12.8 % (13.2-15.2) L 03/07/19 06:35 Plt Count 261 K/mm3 (140-440) 03/07/19 06:35 Lymph % (Auto) 19.5 % (13.4-35.0) 03/07/19 06:35 [place] % (Auto) 10.5 % (0.0-7.3) H 03/07/19 06:35 Eos % (Auto) 1.7 % (0.0-4.3) 03/07/19 06:35 Baso % (Auto) 0.6 % (0.0-1.8) 03/07/19 06:35 Lymph # 1.4 K/mm3 (1.2-5.4) 03/07/19 06:35 [place] # 0.8 K/mm3 (0.0-0.8) 03/07/19 06:35 Eos # 0.1 K/mm3 (0.0-0.4) 03/07/19 06:35 Baso # 0.0 K/mm3 (0.0-0.1) 03/07/19 06:35 Seg Neutrophils % 67.7 % (40.0-70.0) 03/07/19 06:35 Seg Neutrophils # 5.0 K/mm3 (1.8-7.7) 03/07/19 06:35 Sodium 136 mmol/L (137-145) L D 03/07/19 06:35 Potassium 3.8 mmol/L (3.6-5.0) 03/07/19 06:35 Chloride 95.6 mmol/L (98-107) L 03/07/19 06:35 Carbon Dioxide 23 mmol/L (22-30) 03/07/19 06:35 21 mmol/L 03/07/19 06:35 BUN 11 mg/dL (9-20) 03/07/19 06:35 0.7 mg/dL (0.8-1.5) L 03/07/19 06:35 Estimated GFR > 60 ml/min 03/07/19 06:35 16 % 03/07/19 06:35 Glucose 279 mg/dL (75-100) H 03/07/19 06:35 POC Glucose 343 (70-105) H 03/06/19 21:28 12.9 % (4-6) H 03/06/19 10:00 Calcium 8.4 mg/dL (8.4-10.2) 03/07/19 06:35 0.40 mg/dL (0.1-1.2) 03/07/19 06:35 AST 10 units/L (5-40) 03/07/19 06:35 ALT 11 units/L (7-56) 03/07/19 06:35 82 units/L (35-129) 03/07/19 06:35 6.6 g/dL (6.3-8.2) 03/07/19 06:35 3.3 g/dL (3.9-5) L 03/07/19 06:35 1.0 % 03/07/19 06:35 56.4 mg/dL (0.1-20.0) H 03/06/19 05:30 3.4 mg/dL (0.1-34.0) 03/06/19 05:30 Microalb/Creat Ratio 60.2 ug/mg 03/06/19 05:30 Active Medications - Current Medications Current Medications: Generic Name Dose Route Start Last Admin Trade Name Freq PRN Reason Stop Dose Admin Acetaminophen 650 mg 03/06/19 17:55 Tylenol PO Q4H PRN Pain MILD(1-3)/Fever >100.5/BROWNING Dextrose 50 ml 03/06/19 17:56 D50w (25gm) Syringe IV PRN PRN Hypoglycemia Famotidine 20 mg 03/06/19 22:00 03/06/19 21:15 Pepcid PO 20 mg BID TONY Administration Hydromorphone HCl 0.5 mg 03/06/19 17:56 03/06/19 19:43 Dilaudid IV 0.5 mg Q3H PRN Administration Pain , Severe (7-10) Sodium Chloride 1,000 mls @ 75 mls/hr 03/06/19 18:00 03/06/19 18:17 Nacl 0.9% 1000 Ml IV 03/07/19 11:00 75 mls/hr DIRECT TONY Administration Ampicillin Sodium/Sulbactam Sodium 3 gm in 100 mls @ 100 mls/hr 03/06/19 18:00 03/07/19 05:05 Unasyn/Ns 3 Gm/100 Ml IV 100 mls/hr Q6HR TONY Administration Protocol Vancomycin HCl 1,750 mg/ 535 mls @ 333.333 mls/hr 03/07/19 10:00 Sodium Chloride IV Q12H TONY Ibuprofen 600 mg 03/06/19 17:56 03/07/19 05:10 Ibuprofen PO 600 mg Q6H PRN Administration Pain, Mild (1-3) Insulin Human Isoph/Insulin Regular 15 unit 03/07/19 08:00 03/07/19 08:52 Humulin 70/30 SUB-Q Not Given BIDDIAB TONY Insulin Human Regular 0 units 03/06/19 18:00 03/06/19 21:38 Humulin R SUB-Q 6 units ACHS TONY Administration Protocol Ondansetron HCl 4 mg 03/06/19 17:55 Zofran IV Q8H PRN Nausea And Vomiting Sodium Chloride 10 ml 03/06/19 22:00 03/06/19 21:16 Sodium Chloride Flush Syringe 10 Ml IV 10 ml BID TONY Administration Sodium Chloride 10 ml 03/06/19 17:55 Sodium Chloride Flush Syringe 10 Ml IV PRN PRN LINE FLUSH
[2019-03-07] MEDS: HumuLIN R SUB-Q SCH ×4 (09:12→22:18)
[2019-03-07] MEDS ORDERED: SUBLIMAZE IV PRN (09:12)
[2019-03-07] MEDS ORDERED: ZOFRAN IV PRN (09:12)
[2019-03-07] MEDS: PEPCID PO SCH ×2 (10:54→22:17)
[2019-03-07] MEDS: SODIUM CHLORIDE FLUSH SYRINGE 10 ML IV SCH ×2 (10:54→22:18)
[2019-03-07] MEDS: VANCOMYCIN 1,750 MG in NACL 0.9% 500 ML 500 ML IV SCH ×2 (10:54→22:17)
--- NOTE | 2019-03-07 11:06 | Consultation ---
REASON FOR CONSULTATION: Left flank abscess. HISTORY OF PRESENT ILLNESS: The patient is a pleasant 48-year-old diabetic gentleman, who was admitted through the ER with a chief complaint of left flank pain. Physical exam at this time revealed a left flank abscess. PAST MEDICAL HISTORY: Pertinent for diabetes and hypertension. PAST SURGICAL HISTORY: Negative. ALLERGIES: No known allergies. MEDICATIONS: No medications as the patient currently has no PCP and is not taking anything for his diabetes. FAMILY HISTORY: Negative. SOCIAL HISTORY: Smoked 2 packs a day for 35 years, but states he quit approximately one year ago. Drinks daily beer. PHYSICAL EXAMINATION: GENERAL: At this time revealed the patient to be awake, alert, cooperative, in no acute distress. VITAL SIGNS: Show him to be afebrile with a temperature of 98.3, blood pressure is 134/77, pulse of 87, respirations of 20. ABDOMEN: Examination of the flank does indeed reveal fluctuance and significant erythema and tenderness consistent with the left flank subcutaneous abscess with surrounding cellulitis. LABORATORY DATA: Lab work at present includes a CBC, shows a white count of 12.3 on admission. Currently, white count is down to 7.3 as the patient is now on antibiotics. Electrolytes are essentially normal. Glucose on admission was noted to be 460, currently it is 279. IMPRESSION: At this time is that of a 48-year-old diabetic male with left flank abscess. Plan is to proceed with I and D of left flank abscess. Risks, indications, and complications have been reviewed with the patient, who understands and has signed his consent. I will proceed with I and D today. [facility]# [id number] ELMER/NTS
--- NOTE | 2019-03-07 14:05 | Anesthesia Day of Surgery ---
Anesthesia Day of Surgery - Day of Surgery Patient Examined: Yes Patient H&P Reviewed: Yes Patient is NPO: Yes
--- NOTE | 2019-03-07 14:08 | Anesthesia Consultation ---
Anesthesia Consult and Med Hx Date of service: 03/07/19 - Airway Anesthetic Teeth Evaluation: Good (LOOSE R UPPER) ROM Head & Neck: Adequate Mental/Hyoid Distance: Adequate Mallampati Class: Class I Intubation Access Assessment: Good - Pre-Operative Health Status ASA Pre-Surgery Classification: ASA2, Emergency Proposed Anesthetic Plan: General - Cardiovascular System Hx Hypertension: Yes (Lost 100 pounds and is off meds) - Endocrine Hx Non-Insulin Dependent Diabetes: Yes (NO RX)
[2019-03-07] MEDS ORDERED: SUBLIMAZE ONE (14:23)
[2019-03-07] MEDS ORDERED: ZOFRAN ONE ×2 (14:23→14:30)
[2019-03-07] MEDS ORDERED: DIPRIVAN 10 MG/ML IV ONE (14:24)
[2019-03-07] MEDS ORDERED: VERSED ONE (14:40)
[2019-03-07] MEDS ORDERED: HYDROGEN PEROXIDE ONE (15:20)
[2019-03-07] MEDS ORDERED: MARCAINE-EPI/PF 0.25%-1:200,000 INFILTRATI ONE ×2 (15:20→15:24)
[2019-03-07] MEDS ORDERED: MARCAINE-EPI 0.25%-1:200,000 INFILTRATI ONE (15:25)
--- NOTE | 2019-03-07 16:05 | Post Anesthesia Evaluation ---
- Post Anesthesia Evaluation Patient Participated: Yes Airway Patent: Yes Stable Respiratory Function: Yes Nausea/Vomiting: No Temp > 96.8F: Yes Pain Manageable: Yes Adequeate Hydration: Yes Anesthesia Complications: No Block Receding Appropriately: Not Applicable Patient on Ventilator: No
--- NOTE | 2019-03-07 18:32 | Operative Report ---
PREOPERATIVE DIAGNOSIS: Left flank abscess with surrounding cellulitis. POSTOPERATIVE DIAGNOSIS: Left flank abscess with surrounding cellulitis. PROCEDURE: I and D of aforementioned abscess. SURGEON: Lion Cosby MD ANESTHESIA: General. ESTIMATED BLOOD LOSS: Minimal. DRAINS: None. COMPLICATIONS: None. DESCRIPTION OF PROCEDURE: The patient was taken to the operating room and placed in a left lateral decubitus position. The patient was prepped and draped in usual sterile fashion. A #11 blade was used to incise the area. The abscess appeared, fair amount of purulence was noted. Aerobic and anaerobic cultures were taken. Hemostats and electrocautery were used to dissect the entire area. Digital manipulation was then also used to break up all the loculations. The abscess cavity itself was quite extensive which required an almost complete 2 inch iodoform packing gauze. The area was inspected for bleeding and noted to be dry. Then irrigated with a 50% Betadine peroxide solution. A 0.5% Marcaine with epinephrine was infiltrated over the area for postoperative pain relief. The cavity was then packed with the 2-inch iodoform gauze. Fluffs and pressure dressings applied. The patient tolerated the procedure well and left OR in stable condition. JOB# [id number] ELMER/AYE
[2019-03-07] MEDS: DILAUDID IV PRN (18:36)
[2019-03-07] MEDS: NORCO 5/325 PO PRN (22:20)
[2019-03-08] MEDS: DILAUDID IV PRN ×4 (00:45→20:32)
[2019-03-08] MEDS: UNASYN/NS 3 GM/100 ML 3 GM/100 ML BAG IV SCH ×2 (02:06→05:14)
[2019-03-08] MEDS: NORCO 5/325 PO PRN ×3 (05:13→17:40)
[2019-03-08 07:41] LABS: Basophils % (Auto) 0.6 % (0.0-1.8); Eosinophils # (Auto) 0.1 K/mm3 (0.0-0.4); Eosinophils % (Auto) 1.9 % (0.0-4.3); Hematocrit 41.7 % (35.5-45.6); Hemoglobin 14.4 gm/dl (11.8-15.2); Lymphocytes # (Auto) 1.5 K/mm3 (1.2-5.4); Lymphocytes % (Auto) 19.7 % (13.4-35.0); Mean Corpuscular HGB Conc 35 % (32-34); Mean Corpuscular Volume 89 fl (84-94); Monocytes # (Auto) 0.7 K/mm3 (0.0-0.8); Monocytes % (Auto) 9.6 % (0.0-7.3); Platelet Count 320 K/mm3 (140-440); Red Blood Count 4.67 M/mm3 (3.65-5.03); Red Cell Distribution Width 12.6 % (13.2-15.2)
[2019-03-08 08:07] LABS: BUN/Creatinine Ratio 15; Blood Urea Nitrogen 12 mg/dL (9-20); Calcium 8.4 mg/dL (8.4-10.2); Hemolysis Index 23
[2019-03-08] MEDS: HumuLIN R SUB-Q SCH ×4 (09:07→21:56)
[2019-03-08] MEDS: VANCOMYCIN 1,750 MG in NACL 0.9% 500 ML 500 ML IV SCH ×2 (09:32→21:38)
[2019-03-08] MEDS: NORVASC PO SCH ×2 (09:34→11:07)
[2019-03-08] MEDS: PEPCID PO SCH ×2 (09:34→21:37)
[2019-03-08] MEDS: SODIUM CHLORIDE FLUSH SYRINGE 10 ML IV SCH ×2 (09:57→21:38)
--- NOTE | 2019-03-08 11:03 | Consultation ---
History of Present Illness - Reason for Consult Consult date: 03/08/19 Abscess Left Flank Requesting physician: REX SCHULZ - History of Present Illness This patient is a 48-year-old male with a past medical history of diabetes that presented in the ED on 03/06/19 complaining of left flank skin lesion for the past five days. Patient was seen in the ED 2 days ago and prescribed clindamycin but reported that his symptoms were not improving. On admission WBC 12.3, Creatinine 0.8, Temperature 100.0, BP 150/98. Urine Creatinine 56.4. He underwent an incision and drainage of the left flank abscess on 03/07/19. Surgical cultures pending. Blood cultures were drawn and are also pending. Review of Systems: General: no fever, chills, nightsweats, unintentional weight change, or change in appetite Cutaneous: no rash, pruritus Head: no headaches or injury Eyes: no changes in vision, eye pain, double vision Ears: no ear pain, ear discharge, ringing or hearing loss Nose: no nose bleeding, stuffiness Mouth & throat: no bleeding gums, no horseness, no dental problems, or swollen glands Neck: no pain, node enlargement/lumps, tyroid enlargement or tenderness Respiratory: no cough, wheezing, sputum, hemoptysis, pleuritic chest pain Cardiovascular: no chest pain, leg edema, cyanosis, MORSE, orthopnea Musculoskeletal: no decreased joint motion, bone or joint pain, joint swelling, + muscle aches left flank Skin: Left flank abscess, s/p I & D 03/07/19. Now packed with gauze. sanguineous, edematous. Gastrointestinal: no nausea, vomiting, hematemesis, diarrhea, constipation, melena, bright red blood in stools, fecal incontinence, jaundice Neurogical: no seizures, no headaches, no weakness, no paresthesias, no loss of speech or vision; no memory loss, no vertigo, no tremors, no numbness Psychiatric: stable mood; no excessive anxiety, sadness or moodiness Medications and Allergies Allergies Allergy/AdvReac Type Severity Reaction Status Date / Time No Known Allergies Allergy Verified 03/06/19 09:42 Home Medications Medication Instructions Recorded Confirmed Last Taken Type Clindamycin [Clindamycin CAP] 300 mg PO Q8H #21 cap 03/04/19 03/06/19 03/06/19 04:00 Rx Active Meds: Active Medications Acetaminophen (Tylenol) 650 mg PO Q4H PRN PRN Reason: Pain MILD(1-3)/Fever >100.5/BROWNING Acetaminophen/Hydrocodone Bitart ([place] 5/325) 1 each PO Q4H PRN PRN Reason: Pain, Moderate (4-6) Last Admin: 03/08/19 05:13 Dose: 1 each Documented by: Amlodipine Besylate (Norvasc) 5 mg PO QDAY [facility] Last Admin: 03/08/19 09:34 Dose: 5 mg Documented by: Dextrose (D50w (25gm) Syringe) 50 ml IV PRN PRN PRN Reason: Hypoglycemia Famotidine (Pepcid) 20 mg PO BID [facility] Last Admin: 03/08/19 09:34 Dose: 20 mg Documented by: Fentanyl (Sublimaze) 50 mcg IV Q5MIN PRN PRN Reason: Pain , Severe (7-10) Hydromorphone HCl (Dilaudid) 0.5 mg IV Q3H PRN PRN Reason: Pain , Severe (7-10) Last Admin: 03/08/19 07:12 Dose: 0.5 mg Documented by: Vancomycin HCl 1,750 mg/ (Sodium Chloride) 535 mls @ 333.333 mls/hr IV Q12H [facility] Last Admin: 03/08/19 09:32 Dose: 333.333 mls/hr Documented by: Ibuprofen (Ibuprofen) 600 mg PO Q6H PRN PRN Reason: Pain, Mild (1-3) Last Admin: 03/07/19 05:10 Dose: 600 mg Documented by: Insulin Human Isoph/Insulin Regular (Humulin 70/30) 20 unit SUB-Q BIDDIAB [facility] Last Admin: 03/08/19 09:37 Dose: 20 unit Documented by: Insulin Human Regular (Humulin R) 0 units SUB-Q [facility]; Protocol Last Admin: 03/08/19 09:07 Dose: 3 units Documented by: Ondansetron HCl (Zofran) 4 mg IV Q8H PRN PRN Reason: Nausea And Vomiting Ondansetron HCl (Zofran) 4 mg IV ONCE PRN PRN Reason: Nausea And Vomiting Sodium Chloride (Sodium Chloride Flush Syringe 10 Ml) 10 ml IV BID [facility] Last Admin: 03/08/19 09:57 Dose: Not Given Documented by: Sodium Chloride (Sodium Chloride Flush Syringe 10 Ml) 10 ml IV PRN PRN PRN Reason: LINE FLUSH Physical Examination - Physical Exam Narrative exam: Constitutional: Alert. Awake. Mild distress, left flank discomfort. Head, Ears, Nose: Normocephalic, atraumatic. External ears, nose normal Eyes: Conjunctivae/corneas clear. No icterus. No ptosis. Neck: Supple, no meningeal signs Oral: dentition fair. No thrush Cardiovascular: S1, S2 normal. Respiratory: Good air entry, clear to auscultation bilaterally GI: Soft, non-tender; bowel sounds normal. No peritoneal signs Musculoskeletal: No pedal edema, no cyanosis. Skin: left flank abscess, s/p I & D 03/07/19. Now packed with gauze. sanguineous, edematous. Hem/Lymphatic: No palpable cervical or supraclavicular nodes. No lymphangitis Psych: Mood ok. Affect normal Neurological: Awake, alert, oriented. - Constitutional Vitals: Vital Signs Temp Pulse Resp BP Pulse Ox 98.8 F 86 20 133/71 93 03/08/19 06:11 03/08/19 09:34 03/08/19 06:11 03/08/19 09:34 03/08/19 06:11 Temperature -Last 24 Hours Temperature 98.8 F Temperature 98.9 F Temperature 94.6 F Temperature 97.8 F Temperature 97.6 F Temperature 97.4 F Results - Labs CBC & Chem 7: 03/08/19 06:24 03/08/19 06:24 Labs: Abnormal lab results 03/07/19 03/07/19 03/07/19 Range/Units 08:32 11:25 17:26 MCHC (32-34) % RDW (13.2-15.2) % [place] % (Auto) (0.0-7.3) % Chloride (98-107) mmol/L Glucose (75-100) mg/dL POC Glucose 230 H 234 H 160 H (70-105) 03/07/19 03/08/19 03/08/19 Range/Units 21:17 06:24 06:24 MCHC 35 H (32-34) % RDW 12.6 L (13.2-15.2) % [place] % (Auto) 9.6 H (0.0-7.3) % Chloride 97.1 L (98-107) mmol/L Glucose 259 H (75-100) mg/dL POC Glucose 294 H (70-105) 03/08/19 Range/Units 08:01 MCHC (32-34) % RDW (13.2-15.2) % [place] % (Auto) (0.0-7.3) % Chloride (98-107) mmol/L Glucose (75-100) mg/dL POC Glucose 239 H (70-105) Assessment and Plan Cultures: 03/07/19 Blood: in progress A/P: 48-year-old male with a past medical history of diabetes that presented in the ED on 03/06/19 complaining of left flank skin lesion for the past five days. Patient was seen in the ED 2 days ago and prescribed clindamycin but reported that his symptoms were not improving. Admitted with: 1. Leukocytosis: on admission. most likely related to left flank abscess with surrounding cellulitis. No fevers. Blood cultures are in progress. Currently being treated with Vancomycin. 2. Left flank abscess with surrounding celluilitis: s/p incision and drainage of the left flank abscess on 03/07/19. Surgical cultures pending. 3. Type 2 diabetes mellitus: uncontrolled. Recommend tight glycemic control. Plan: -follow-up blood cultures -follow-up surgical cultures -continue Vancomycin PK consult [facility] M: [phone] O:[phone]
--- NOTE | 2019-03-08 12:01 | Progress Note ---
Assessment and Plan Assessment and plan: Abscess left flank Admitted to med/surg Surgeon following, Dr. Cosby s/p I and D yesterday ID Physician following On vancomycin Diabetes mellitus type 2 Uncontrolled Cont Novolin 70/30 bid and sliding scale Patient said he was taken off antidiabetic spelled a primary care physician years ago and has not been on any medications. Recommend putting patient on metformin twice a day on discharge. 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 Full code status Hopefully dc home in 1-2 days pending Surg and ID input. History Interval history: Patient presented with left flank pain, diagnosed with abscess left flank s/p I and D Hospitalist Physical - Physical exam Narrative exam: Gen: Not in acute distress, lying in bed,obese HEENT: Normocephalic, atraumatic Neck: supple, no JVD Heart: S1 and S2 reg, no murmurs, rubs or gallop Lungs: Clear, no crackles, no wheeze Abd: soft, dressing over left lower part left flank, normal BS Ext: No edema, no clubbing, no cyanosis, Neuro: Awake,alert, oriented x 3, moves all ext, non focal Psych:Normal mood - Constitutional Vitals: Temp Pulse Resp BP Pulse Ox 98.8 F 86 20 133/71 93 03/08/19 06:11 03/08/19 09:34 03/08/19 06:11 03/08/19 09:34 03/08/19 06:11 General appearance: Present: no acute distress, obese Results - Labs CBC & Chem 7: 03/08/19 06:24 03/08/19 06:24 Labs: Laboratory Last Values WBC 7.4 K/mm3 (4.5-11.0) 03/08/19 06:24 RBC 4.67 M/mm3 (3.65-5.03) 03/08/19 06:24 Hgb 14.4 gm/dl (11.8-15.2) 03/08/19 06:24 Hct 41.7 % (35.5-45.6) 03/08/19 06:24 MCV 89 fl (84-94) 03/08/19 06:24 MCH 31 pg (28-32) 03/08/19 06:24 MCHC 35 % (32-34) H 03/08/19 06:24 RDW 12.6 % (13.2-15.2) L 03/08/19 06:24 Plt Count 320 K/mm3 (140-440) 03/08/19 06:24 Lymph % (Auto) 19.7 % (13.4-35.0) 03/08/19 06:24 [place] % (Auto) 9.6 % (0.0-7.3) H 03/08/19 06:24 Eos % (Auto) 1.9 % (0.0-4.3) 03/08/19 06:24 Baso % (Auto) 0.6 % (0.0-1.8) 03/08/19 06:24 Lymph # 1.5 K/mm3 (1.2-5.4) 03/08/19 06:24 [place] # 0.7 K/mm3 (0.0-0.8) 03/08/19 06:24 Eos # 0.1 K/mm3 (0.0-0.4) 03/08/19 06:24 Baso # 0.0 K/mm3 (0.0-0.1) 03/08/19 06:24 Seg Neutrophils % 68.2 % (40.0-70.0) 03/08/19 06:24 Seg Neutrophils # 5.0 K/mm3 (1.8-7.7) 03/08/19 06:24 Sodium 139 mmol/L (137-145) 03/08/19 06:24 Potassium 3.8 mmol/L (3.6-5.0) 03/08/19 06:24 Chloride 97.1 mmol/L (98-107) L 03/08/19 06:24 Carbon Dioxide 25 mmol/L (22-30) 03/08/19 06:24 21 mmol/L 03/08/19 06:24 BUN 12 mg/dL (9-20) 03/08/19 06:24 0.8 mg/dL (0.8-1.5) 03/08/19 06:24 Estimated GFR > 60 ml/min 03/08/19 06:24 15 % 03/08/19 06:24 Glucose 259 mg/dL (75-100) H 03/08/19 06:24 POC Glucose 241 (70-105) H 03/08/19 11:34 12.9 % (4-6) H 03/06/19 10:00 Calcium 8.4 mg/dL (8.4-10.2) 03/08/19 06:24 0.40 mg/dL (0.1-1.2) 03/07/19 06:35 AST 10 units/L (5-40) 03/07/19 06:35 ALT 11 units/L (7-56) 03/07/19 06:35 82 units/L (35-129) 03/07/19 06:35 6.6 g/dL (6.3-8.2) 03/07/19 06:35 3.3 g/dL (3.9-5) L 03/07/19 06:35 1.0 % 03/07/19 06:35 56.4 mg/dL (0.1-20.0) H 03/06/19 05:30 3.4 mg/dL (0.1-34.0) 03/06/19 05:30 Microalb/Creat Ratio 60.2 ug/mg 03/06/19 05:30 Active Medications - Current Medications Current Medications: Generic Name Dose Route Start Last Admin Trade Name Freq PRN Reason Stop Dose Admin Acetaminophen 650 mg 03/06/19 17:55 Tylenol PO Q4H PRN Pain MILD(1-3)/Fever >100.5/BR[place]ING Acetaminophen/Hydrocodone Bitart 1 each 03/07/19 15:33 03/08/19 11:06 [place] 5/325 PO 1 each Q4H PRN Administration Pain, Moderate (4-6) Amlodipine Besylate 5 mg 03/08/19 09:00 03/08/19 11:07 Norvasc PO Not Given QDAY TONY Dextrose 50 ml 03/06/19 17:56 D50w (25gm) Syringe IV PRN PRN Hypoglycemia Famotidine 20 mg 03/06/19 22:00 03/08/19 09:34 Pepcid PO 20 mg BID TONY Administration Fentanyl 50 mcg 03/07/19 09:12 Sublimaze IV Q5MIN PRN Pain , Severe (7-10) Hydromorphone HCl 0.5 mg 03/06/19 17:56 03/08/19 07:12 Dilaudid IV 0.5 mg Q3H PRN Administration Pain , Severe (7-10) Vancomycin HCl 1,750 mg/ 535 mls @ 333.333 mls/hr 03/07/19 10:00 03/08/19 09:32 Sodium Chloride IV 333.333 mls/hr Q12H TONY Administration Ibuprofen 600 mg 03/06/19 17:56 03/07/19 05:10 Ibuprofen PO 600 mg Q6H PRN Administration Pain, Mild (1-3) Insulin Human Isoph/Insulin Regular 20 unit 03/08/19 08:00 03/08/19 09:37 Humulin 70/30 SUB-Q 20 unit BIDDIAB TONY Administration Insulin Human Regular 0 units 03/06/19 18:00 03/08/19 09:07 Humulin R SUB-Q 3 units ACHS TONY Administration Protocol Ondansetron HCl 4 mg 03/06/19 17:55 Zofran IV Q8H PRN Nausea And Vomiting Ondansetron HCl 4 mg 03/07/19 09:12 Zofran IV ONCE PRN Nausea And Vomiting Sodium Chloride 10 ml 03/06/19 22:00 03/08/19 09:57 Sodium Chloride Flush Syringe 10 Ml IV Not Given BID TONY Sodium Chloride 10 ml 03/06/19 17:55 Sodium Chloride Flush Syringe 10 Ml IV PRN PRN LINE FLUSH
--- NOTE | 2019-03-08 13:13 | Progress Note ---
Assessment and Plan POD # 1 Pt feeling well. no compl. dressings dry. ID eval appreciated. cults pending surgically stable pt will need home health arrangements for local care prior to d/c Selected Entries 03/08/19 09:34 Pulse Rate 86 Blood Pressure 133/71 Laboratory Tests 03/08/19 03/08/19 06:24 06:24 WBC 7.4 Hgb 14.4 Hct 41.7 Glucose 259 H Objective Vital Signs - 12hr 03/08/19 03/08/19 03/08/19 06:11 09:33 09:34 Temperature 98.8 F Pulse Rate 88 86 Respiratory 20 Rate Blood Pressure 146/87 133/71 133/71 O2 Sat by Pulse 93 Oximetry 03/08/19 12:32 Temperature 97.6 F Pulse Rate 97 H Respiratory 20 Rate Blood Pressure 152/90 O2 Sat by Pulse 97 Oximetry - Labs 03/08/19 06:24 03/08/19 06:24 Diabetes panel 03/08/19 Range/Units 06:24 Sodium 139 (137-145) mmol/L Potassium 3.8 (3.6-5.0) mmol/L Chloride 97.1 L (98-107) mmol/L Carbon Dioxide 25 (22-30) mmol/L BUN 12 (9-20) mg/dL Creatinine 0.8 (0.8-1.5) mg/dL Glucose 259 H (75-100) mg/dL Calcium 8.4 (8.4-10.2) mg/dL Calcium panel 03/08/19 Range/Units 06:24 Calcium 8.4 (8.4-10.2) mg/dL Pituitary panel 03/08/19 Range/Units 06:24 Sodium 139 (137-145) mmol/L Potassium 3.8 (3.6-5.0) mmol/L Chloride 97.1 L (98-107) mmol/L Carbon Dioxide 25 (22-30) mmol/L BUN 12 (9-20) mg/dL Creatinine 0.8 (0.8-1.5) mg/dL Glucose 259 H (75-100) mg/dL Calcium 8.4 (8.4-10.2) mg/dL Adrenal panel 03/08/19 Range/Units 06:24 Sodium 139 (137-145) mmol/L Potassium 3.8 (3.6-5.0) mmol/L Chloride 97.1 L (98-107) mmol/L Carbon Dioxide 25 (22-30) mmol/L BUN 12 (9-20) mg/dL Creatinine 0.8 (0.8-1.5) mg/dL Glucose 259 H (75-100) mg/dL Calcium 8.4 (8.4-10.2) mg/dL
[2019-03-09] MEDS: NORCO 5/325 PO PRN ×3 (04:47→12:35)
[2019-03-09] MEDS: HumuLIN R SUB-Q SCH ×4 (08:39→21:24)
--- NOTE | 2019-03-09 10:19 | Progress Note ---
Assessment and Plan Cultures: 03/07/19 Blood: in progress A/P: 48-year-old male with a past medical history of diabetes that presented in the ED on 03/06/19 complaining of left flank skin lesion for the past five days. Carlos isabel was seen in the ED 2 days ago and prescribed clindamycin but reported that his symptoms were not improving. Admitted with: 1. Leukocytosis: Resolved. most likely related to left flank abscess with surrounding cellulitis. No fevers. Blood cultures are in progress. Currently being treated with Vancomycin. 2. Left flank abscess with surrounding celluilitis: s/p incision and drainage of the left flank abscess on 03/07/19. Surgical cultures pending. 3. Type 2 diabetes mellitus: uncontrolled. Recommend tight glycemic control. Plan: -start cefazolin 2 gms IV every 8 hours -continue Vancomycin PK consult, D3 -follow-up blood cultures -follow-up surgical cultures -order MRSA PCR Anticipate discharge on Doxycycline and Keflex, duration will be determined by culture results [facility] M: [phone] O:[phone] Subjective Date of service: 03/09/19 Interval history: Patient seen and examined. Reports continued left flank tenderness. No fevers. Objective - Exam Narrative Exam: Constitutional: Alert. Awake. Mild distress, left flank discomfort. Head, Ears, Nose: Normocephalic, atraumatic. External ears, nose normal Eyes: Conjunctivae/corneas clear. No icterus. No ptosis. Neck: Supple, no meningeal signs Oral: dentition fair. No thrush Cardiovascular: S1, S2 normal. Respiratory: Good air entry, clear to auscultation bilaterally GI: Soft, non-tender; bowel sounds normal. No peritoneal signs Musculoskeletal: No pedal edema, no cyanosis. Skin: left flank abscess, s/p I & D 03/07/19. Now packed with gauze. sanguineous, edematous. Hem/Lymphatic: No palpable cervical or supraclavicular nodes. No lymphangitis Psych: Mood ok. Affect normal Neurological: Awake, alert, oriented. - Constitutional Vitals: Vital Signs Temp Pulse Resp BP Pulse Ox 98.2 F 84 20 138/89 96 03/09/19 04:48 03/09/19 04:48 03/09/19 05:47 03/09/19 04:48 03/09/19 04:48 Temperature -Last 24 Hours Temperature 98.2 F Temperature 98.4 F Temperature 98.9 F Temperature 97.6 F - Labs CBC & Chem 7: 03/08/19 06:24 03/08/19 06:24 Labs: Abnormal lab results 03/08/19 03/08/19 03/08/19 Range/Units 11:34 16:15 21:54 POC Glucose 241 H 167 H 238 H (70-105) 03/09/19 Range/Units 07:55 POC Glucose 279 H (70-105)
[2019-03-09] MEDS: VANCOMYCIN 1,750 MG in NACL 0.9% 500 ML 500 ML IV SCH ×2 (11:31→21:08)
[2019-03-09] MEDS: SODIUM CHLORIDE FLUSH SYRINGE 10 ML IV SCH (11:31)
[2019-03-09] MEDS: PEPCID PO SCH ×2 (11:31→21:04)
[2019-03-09] MEDS: NORVASC PO SCH (11:37)
--- NOTE | 2019-03-09 12:09 | Progress Note ---
Assessment and Plan Pt is feelilng well. no compl Begin local wd care today as per ET nurses Home health arrangements for out pt local wd care surgically stable may d/c from surg perspective when home health arrangements completed. rto next Saturday Selected Entries 03/09/19 03/09/19 04:48 11:37 Temperature 98.2 F Respiratory 20 Rate Blood Pressure 118/70 Objective Vital Signs - 12hr 03/09/19 03/09/19 03/09/19 04:48 05:47 11:37 Temperature 98.2 F Pulse Rate 84 73 Respiratory 20 20 Rate Blood Pressure 138/89 118/70 O2 Sat by Pulse 96 Oximetry - Labs 03/08/19 06:24 03/08/19 06:24
--- NOTE | 2019-03-09 13:47 | Progress Note ---
Assessment and Plan - Patient Problems (1) Carbuncle Current Visit: Yes Status: Acute Plan to address problem: Status post incision and drainage. Patient currently on vancomycin. Area is packed. Current plan is to have watch how to pack the dressing upon education today. Patient has been approved for 3-5 outpatient visits for wound care. We'll rule out every 1-2 days upon discharge. Anticipate discharge in the a.m. currently no growth after 24 hours of blood cultures. If no growth at 24 hours with discharge on Bactrim double strength 1 tab by mouth twice a day for 10-14 days. (2) Cellulitis Current Visit: Yes Status: Acute Plan to address problem: Solving. (3) T2DM (type 2 diabetes mellitus) Current Visit: Yes Status: Chronic Qualifiers: Diabetes mellitus skilled nursing insulin use: unspecified hand inspector insulin use status Plan to address problem: Early uncontrolled. Most likely exacerbated by infection. We'll increase NovoLog to 28 units twice a day. Continue sliding scale insulin coverage and titrate accordingly. History Interval history: At present patient is currently pain-free doing well. Evaluated and packed. Wound. No fever no nausea or vomiting pain stable. Hospitalist Physical - Constitutional Vitals: Temp Pulse Resp BP Pulse Ox 98.2 F 75 16 118/70 96 03/09/19 11:37 03/09/19 11:37 03/09/19 11:37 03/09/19 11:37 03/09/19 11:37 General appearance: Present: no acute distress, obese - EENT Eyes: Present: PERRL, EOM intact ENT: hearing intact, clear oral mucosa, dentition normal - Neck Neck: Present: supple, normal ROM - Respiratory Respiratory effort: normal Respiratory: bilateral: CTA - Cardiovascular Rhythm: regular Heart Sounds: Present: S1 & S2 - Extremities Extremities: no ischemia, pulses intact, pulses symmetrical, No edema, normal temperature, normal color Peripheral Pulses: within normal limits - Abdominal General gastrointestinal: soft, non-tender, non-distended, normal bowel sounds - Psychiatric Psychiatric: appropriate mood/affect, intact judgment & insight, memory intact - Neurologic Neurologic: CNII-XII intact, focal deficits Results - Labs CBC & Chem 7: 03/08/19 06:24 03/08/19 06:24 Labs: Laboratory Last Values WBC 7.4 K/mm3 (4.5-11.0) 03/08/19 06:24 RBC 4.67 M/mm3 (3.65-5.03) 03/08/19 06:24 Hgb 14.4 gm/dl (11.8-15.2) 03/08/19 06:24 Hct 41.7 % (35.5-45.6) 03/08/19 06:24 MCV 89 fl (84-94) 03/08/19 06:24 MCH 31 pg (28-32) 03/08/19 06:24 MCHC 35 % (32-34) H 03/08/19 06:24 RDW 12.6 % (13.2-15.2) L 03/08/19 06:24 Plt Count 320 K/mm3 (140-440) 03/08/19 06:24 Lymph % (Auto) 19.7 % (13.4-35.0) 03/08/19 06:24 [place] % (Auto) 9.6 % (0.0-7.3) H 03/08/19 06:24 Eos % (Auto) 1.9 % (0.0-4.3) 03/08/19 06:24 Baso % (Auto) 0.6 % (0.0-1.8) 03/08/19 06:24 Lymph # 1.5 K/mm3 (1.2-5.4) 03/08/19 06:24 [place] # 0.7 K/mm3 (0.0-0.8) 03/08/19 06:24 Eos # 0.1 K/mm3 (0.0-0.4) 03/08/19 06:24 Baso # 0.0 K/mm3 (0.0-0.1) 03/08/19 06:24 Seg Neutrophils % 68.2 % (40.0-70.0) 03/08/19 06:24 Seg Neutrophils # 5.0 K/mm3 (1.8-7.7) 03/08/19 06:24 Sodium 139 mmol/L (137-145) 03/08/19 06:24 Potassium 3.8 mmol/L (3.6-5.0) 03/08/19 06:24 Chloride 97.1 mmol/L (98-107) L 03/08/19 06:24 Carbon Dioxide 25 mmol/L (22-30) 03/08/19 06:24 21 mmol/L 03/08/19 06:24 BUN 12 mg/dL (9-20) 03/08/19 06:24 0.8 mg/dL (0.8-1.5) 03/08/19 06:24 Estimated GFR > 60 ml/min 03/08/19 06:24 15 % 03/08/19 06:24 Glucose 259 mg/dL (75-100) H 03/08/19 06:24 POC Glucose 225 (70-105) H 03/09/19 11:12 12.9 % (4-6) H 03/06/19 10:00 Calcium 8.4 mg/dL (8.4-10.2) 03/08/19 06:24 0.40 mg/dL (0.1-1.2) 03/07/19 06:35 AST 10 units/L (5-40) 03/07/19 06:35 ALT 11 units/L (7-56) 03/07/19 06:35 82 units/L (35-129) 03/07/19 06:35 6.6 g/dL (6.3-8.2) 03/07/19 06:35 3.3 g/dL (3.9-5) L 03/07/19 06:35 1.0 % 03/07/19 06:35 56.4 mg/dL (0.1-20.0) H 03/06/19 05:30 3.4 mg/dL (0.1-34.0) 03/06/19 05:30 Microalb/Creat Ratio 60.2 ug/mg 03/06/19 05:30 Active Medications - Current Medications Current Medications: Generic Name Dose Route Start Last Admin Trade Name Freq PRN Reason Stop Dose Admin Acetaminophen 650 mg 03/06/19 17:55 Tylenol PO Q4H PRN Pain MILD(1-3)/Fever >100.5/[place] Acetaminophen/Hydrocodone Bitart 1 each 03/07/19 15:33 03/09/19 12:35 [place] 5/325 PO 1 each Q4H PRN Administration Pain, Moderate (4-6) Amlodipine Besylate 5 mg 03/08/19 09:00 03/09/19 11:37 Norvasc PO 5 mg QDAY TONY Administration Dextrose 50 ml 03/06/19 17:56 D50w (25gm) Syringe IV PRN PRN Hypoglycemia Famotidine 20 mg 03/06/19 22:00 03/09/19 11:31 Pepcid PO 20 mg BID TONY Administration Hydromorphone HCl 0.5 mg 03/06/19 17:56 03/08/19 20:32 Dilaudid IV 0.5 mg Q3H PRN Administration Pain , Severe (7-10) Vancomycin HCl 1,750 mg/ 535 mls @ 333.333 mls/hr 03/07/19 10:00 03/09/19 11:31 Sodium Chloride IV 333.333 mls/hr Q12H TONY Administration Ibuprofen 600 mg 03/06/19 17:56 03/07/19 05:10 Ibuprofen PO 600 mg Q6H PRN Administration Pain, Mild (1-3) Insulin Human Isoph/Insulin Regular 24 unit 03/08/19 15:58 03/09/19 08:40 Humulin 70/30 SUB-Q 24 unit BIDDIAB TONY Administration Insulin Human Regular 0 units 03/06/19 18:00 03/09/19 12:34 Humulin R SUB-Q 3 units ACHS TONY Administration Protocol Ondansetron HCl 4 mg 03/06/19 17:55 Zofran IV Q8H PRN Nausea And Vomiting Ondansetron HCl 4 mg 03/07/19 09:12 Zofran IV ONCE PRN Nausea And Vomiting Sodium Chloride 10 ml 03/06/19 22:00 03/09/19 11:31 Sodium Chloride Flush Syringe 10 Ml IV 10 ml BID TONY Administration Sodium Chloride 10 ml 03/06/19 17:55 Sodium Chloride Flush Syringe 10 Ml IV PRN PRN LINE FLUSH
[2019-03-09] MEDS ORDERED: MAXIPIME/NS 2 GM/100 ML 2 GM/100 ML BAG IV SCH (15:00)
[2019-03-09] MEDS: DILAUDID IV PRN ×2 (15:07→20:45)
[2019-03-09] MEDS: ceFAZolin 2 GM in NACL 0.9% 100 ML IV SCH (15:18)
[2019-03-10] MEDS: DILAUDID IV PRN ×2 (00:08→05:42)
[2019-03-10] MEDS: SODIUM CHLORIDE FLUSH SYRINGE 10 ML IV SCH ×2 (00:12→14:33)
[2019-03-10] MEDS: ceFAZolin 2 GM in NACL 0.9% 100 ML IV SCH ×2 (06:24)
[2019-03-10] MEDS: HumuLIN R SUB-Q SCH ×2 (09:20→13:10)
--- NOTE | 2019-03-10 10:17 | Progress Note ---
Assessment and Plan Cultures: 03/07/19 Blood: no growth Surgical cultures not available A/P: 48-year-old male with a past medical history of diabetes that presented in the ED on 03/06/19 complaining of left flank skin lesion for the past five days. Patient was seen in the ED 2 days ago and prescribed clindamycin but reported that his symptoms were not improving. Admitted with: 1. Leukocytosis: Resolved. most likely related to left flank abscess with surrounding cellulitis. No fevers. Blood cultures are in progress. Currently being treated with Vancomycin. 2. Left flank abscess with surrounding celluilitis: Likely staph infection. ?MRSA vs MSSA. s/p incision and drainage of the left flank abscess on 03/07/19. Surgical cultures not available 3. Type 2 diabetes mellitus: uncontrolled. Recommend tight glycemic control. Plan: -continue cefazolin 2 gms IV every 8 hours, D2 -continue Vancomycin PK consult, D4 -follow-up blood cultures -follow-up MRSA PCR Anticipate discharge on Keflex 1 gm PO QID and Doxycycline 100mg PO BID total 10 days ending 03-18-19 -Follow up ID clinic in 3 weeks (Sent to warehouse insulation worker) -continue wound care [facility] M: [phone] O:[phone] Subjective Date of service: 03/10/19 Interval history: Patient seen and examined. Reports continued left flank tenderness. No fevers. Objective - Exam Narrative Exam: Constitutional: Alert. Awake. Mild distress, left flank discomfort. Head, Ears, Nose: Normocephalic, atraumatic. External ears, nose normal Eyes: Conjunctivae/corneas clear. No icterus. No ptosis. Neck: Supple, no meningeal signs Oral: dentition fair. No thrush Cardiovascular: S1, S2 normal. Respiratory: Good air entry, clear to auscultation bilaterally GI: Soft, non-tender; bowel sounds normal. No peritoneal signs Musculoskeletal: No pedal edema, no cyanosis. Skin: left flank abscess, s/p I & D 03/07/19. Now packed with gauze. sanguineous, edematous. Hem/Lymphatic: No palpable cervical or supraclavicular nodes. No lymphangitis Psych: Mood ok. Affect normal Neurological: Awake, alert, oriented. - Constitutional Vitals: Vital Signs Temp Pulse Resp BP Pulse Ox 98.6 F 82 17 153/101 95 03/10/19 05:29 03/10/19 05:29 03/10/19 05:42 03/10/19 05:29 03/10/19 05:29 Temperature -Last 24 Hours Temperature 98.6 F Temperature 98.7 F Temperature 98.2 F Temperature 98.2 F - Labs CBC & Chem 7: 03/08/19 06:24 03/08/19 06:24 Labs: Abnormal lab results 03/09/19 03/09/19 03/09/19 Range/Units 11:12 16:36 21:22 POC Glucose 225 H 239 H 198 H (70-105) 03/10/19 Range/Units 08:08 POC Glucose 177 H (70-105)
[2019-03-10] MEDS: VANCOMYCIN 1,750 MG in NACL 0.9% 500 ML 500 ML IV SCH (10:36)
--- NOTE | 2019-03-10 10:37 | Discharge Summary ---
Providers - Providers Date of Admission: 03/06/19 13:27 Date of discharge: 03/10/19 Attending physician: NICHOLE RICHARDSON 03/07/19 07:37 Consult to Physician [CONS] Routine Comment: Consulting Provider: REX SCHULZ Physician Instructions: Reason For Exam: Abscess left flank 03/07/19 15:46 Consult to Physician [CONS] Routine Comment: Consulting Provider: MARJORIE ARCE Physician Instructions: Reason For Exam: +DM L flank abscess Consult to Wound/ET Nurse [CONS] Routine Reason For Exam: wound eval begin local wd care Saturday03/08/19 17:47 Consult to Case Management [CONS] Routine Services Needed at Discharge: Employment Services Director Notified:: rubin [facility] Reason for admission: Abscess Left Flank Condition: Stable Hospital course: This patient is a 48-year-old male with a past medical history of diabetes that presented in the ED on 03/06/19 complaining of left flank skin lesion for the past five days CREATIVE STRATEGIST. Patient was seen in the ED 2 days CREATIVE STRATEGIST and prescribed clindamycin but reported that his symptoms did not improve. On admission WBC 12.3, Creatinine 0.8, Temperature 100.0, BP 150/98. Urine Creatinine 56.4. He underwent an incision and drainage of the left flank abscess on 03/07/19. The patient was admitted with a diagnosis of abscess of his left flank, cellulitis and sepsis. Patient was treated with IV antibiotics with significant improvement. The patient's received education on wound maintenance patient was approved for 3-5 outpatient visits for wound care. The patient's leukocytosis resolved. ID felt the patient could discharge with Keflex 1 gm PO QID and Doxycycline 100mg PO BID total 10 days ending 03-18-19. Patient should've follow-up with ID in 3 weeks. That can be discharged on 32 minutes. Disposition: - TO HOME OR SELFCARE Time spent for discharge: 32 - Discharge Diagnoses (1) Carbuncle Status: Acute (2) Cellulitis Status: Acute (3) Hyperglycemia Status: Acute (4) Hyponatremia Status: Acute (5) T2DM (type 2 diabetes mellitus) Status: Chronic Qualifiers: Diabetes mellitus assisted insulin use: unspecified assisted insulin use status Core Measure Documentation - Palliative Care Palliative Care/ Comfort Measures: Not Applicable - Core Measures Any of the following diagnoses?: none Exam - Constitutional Vitals: Temp Pulse Resp BP Pulse Ox 98.6 F 82 17 153/101 95 03/10/19 05:29 03/10/19 05:29 03/10/19 05:42 03/10/19 05:29 03/10/19 05:29 General appearance: Present: no acute distress, well-nourished - EENT Eyes: Present: PERRL ENT: hearing intact, clear oral mucosa - Neck Neck: Present: supple, normal ROM - Respiratory Respiratory effort: normal Respiratory: bilateral: CTA - Cardiovascular Heart Sounds: Present: S1 & S2. Absent: rub, click - Extremities Extremities: pulses symmetrical, No edema Peripheral Pulses: within normal limits - Abdominal General gastrointestinal: Present: soft, non-tender, non-distended, normal bowel sounds Male genitourinary: Present: normal - Integumentary Integumentary: Present: clear, warm, dry - Musculoskeletal Musculoskeletal: gait normal, strength equal bilaterally - Psychiatric Psychiatric: appropriate mood/affect, intact judgment & insight - Neurologic Neurologic: CNII-XII intact, moves all extremities Plan Activity: no restrictions Weight Bearing Status: Full Weight Bearing Diet: diabetic Wound: change dressing, per wound nurse instructions Follow up with: [facility] MD GEENA [Primary Care Provider] - 3-5 Days MARJORIE ARCE MD [Staff Physician] - 7 Days Prescriptions: Doxycycline Hyclate [Doxycycline Hyclate TAB] 100 mg PO Q12HR 10 Days tab Cephalexin [Keflex] 1 gram PO QID 10 Days capsule HYDROcodone/APAP 5-325 [[place] 5-325 mg TAB] 1 each PO Q4H PRN #8 tablet PRN Reason: Pain, Moderate (4-6) amLODIPine [Norvasc] 5 mg PO QDAY #30 tablet Famotidine [Pepcid] 20 mg PO BID #60 tablet
[2019-03-10] MEDS: PEPCID PO SCH (10:38)
[2019-03-10] MEDS: NORVASC PO SCH (10:38)
--- NOTE | 2019-03-10 11:17 | Progress Note ---
Assessment and Plan Pt feeling well without compl. Dressings changed as per wd nurses. Dry. surrounding cellulitis much improved home health arrangements completed surgically stable pt instructions given antibiotics as per ID rto Saturday. Selected Entries 03/10/19 03/10/19 03/10/19 05:29 05:42 10:38 Temperature 98.6 F Pulse Rate 82 Respiratory 17 Rate Blood Pressure 153/101 Objective Vital Signs - 12hr 03/09/19 03/10/19 03/10/19 23:39 00:08 05:29 Temperature 98.7 F 98.6 F Pulse Rate 83 82 Respiratory 20 17 20 Rate Blood Pressure 159/98 153/101 O2 Sat by Pulse 98 95 Oximetry 03/10/19 03/10/19 05:42 10:38 Temperature Pulse Rate 82 Respiratory 17 Rate Blood Pressure 153/101 O2 Sat by Pulse Oximetry - Labs 03/08/19 06:24 03/08/19 06:24
[2019-03-10] MEDS ORDERED: VANCOMYCIN 1,500 MG in NACL 0.9% 500 ML 500 ML IV SCH (12:00)
[2019-03-10 13:28] VITALS: BP 129/71
== END 2019-03-10 17:25 | disposition home or self-care (01) | DRG 872 ==
LOC: ED 09:42 → 3A 13:27
PROVIDERS: ADMIT Internal Medicine; ATTEND Hospitalist
PROC: 0W9F3ZZ Drainage of Abdominal Wall, Percutaneous Approach (ICD-10-PCS; principal; 2019-03-07)
DX: A41.9 Sepsis, unspecified organism (principal); E87.1 Hypo-osmolality and hyponatremia; L02.211 Cutaneous abscess of abdominal wall; L03.311 Cellulitis of abdominal wall; E11.65 Type 2 diabetes mellitus with hyperglycemia; L02.231 Carbuncle of abdominal wall; F03.90 Unspecified dementia, unspecified severity, without behavioral disturbance, psychotic disturbance, mood disturbance, and anxiety; I10 Essential (primary) hypertension
CPT/HCPCS: 36415; 80048; 80053; 80202; 82043; 82962; 83036; 85025; 85027; 87040; 96361; 96365; 96375; 96376; G0378; J0295; J0690; J1170; J1815; J2250; J2270; J2405; J2704; J3010; J3370; J7030; J7040

== ENCOUNTER 2019-04-17 21:27 | Emergency (ER) | payer OTHER ==
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
[2019-04-18 02:04] VITALS: BP 150/85
== END 2019-04-18 01:38 | disposition home or self-care (01) ==
LOC: ED 21:27
DX: S16.1XXA Strain of muscle, fascia and tendon at neck level, initial encounter (principal); M25.512 Pain in left shoulder; R07.89 Other chest pain; I11.0 Hypertensive heart disease with heart failure; I50.9 Heart failure, unspecified; E11.9 Type 2 diabetes mellitus without complications; F03.90 Unspecified dementia, unspecified severity, without behavioral disturbance, psychotic disturbance, mood disturbance, and anxiety; Z79.899 Other long term (current) drug therapy; V89.2XXA Person injured in unspecified motor-vehicle accident, traffic, initial encounter; Y93.89 Activity, other specified; Y92.89 Other specified places as the place of occurrence of the external cause; Y99.8 Other external cause status
CPT/HCPCS: 71046; 72040

== ENCOUNTER 2019-07-17 18:22 | Emergency (ER) | payer SELFPAY ==
--- NOTE | 2019-07-17 19:24 | Emergency Department Report ---
Chief Complaint: Skin/Abscess/Foreign Body Stated Complaint: FACAIL SWELLING,HEAD PAIN - HPI History of Present Illness: 48yo WM states that he has a L lip abscess that burst earlier. He states that he has a history of skin infections that require antibiotics. - Exam Vital Signs: Vital Signs 07/17/19 18:42 Temperature 98.5 F Pulse Rate 101 H Respiratory 18 Rate Blood Pressure 181/108 O2 Sat by Pulse 98 Oximetry MSE screening note: Focused history and physical exam performed. Due to findings the following was ordered: ED Disposition for MSE Condition: Stable
[2019-07-17 19:48] LABS: Basophils # (Auto) 0.1 K/mm3 (0.0-0.1); Basophils % (Auto) 0.6 % (0.0-1.8); Eosinophils # (Auto) 0.1 K/mm3 (0.0-0.4); Eosinophils % (Auto) 1.3 % (0.0-4.3); Hematocrit 47.2 % (35.5-45.6); Hemoglobin 16.1 gm/dl (11.8-15.2); Lymphocytes # (Auto) 2.6 K/mm3 (1.2-5.4); Lymphocytes % (Auto) 24.5 % (13.4-35.0); Mean Corpuscular HGB Conc 34 % (32-34); Mean Corpuscular Volume 89 fl (84-94); Monocytes % (Auto) 9.7 % (0.0-7.3); Platelet Count 243 K/mm3 (140-440); Red Blood Count 5.32 M/mm3 (3.65-5.03); Red Cell Distribution Width 12.6 % (13.2-15.2)
[2019-07-17 20:05] LABS: Alanine Aminotransferase 18 units/L (7-56); Albumin 4.5 g/dL (3.9-5); BUN/Creatinine Ratio 15; Blood Urea Nitrogen 12 mg/dL (9-20); Calcium 9.7 mg/dL (8.4-10.2); Hemolysis Index 11
[2019-07-17 20:19] LABS: Bilirubin,Urine NEG (Negative); Blood,Urine NEG (Negative); Color,Urine Yellow (Yellow); Mucus,Urine FEW /HPF; Protein,Urine <15 mg/dL mg/dL (Negative); Urobilinogen,Urine < 2.0 mg/dL (<2.0)
[2019-07-17] MEDS ORDERED: ONDANSETRON 4 MG ODT TAB PO ONE (21:41)
[2019-07-17] MEDS ORDERED: SULFAMETHOXAZOLE/TRIMETHOPRIM 800/160MG DS TAB PO ONE (21:41)
[2019-07-17] MEDS ORDERED: HYDROcodone/ACETAMINOPHEN 10-325MG TAB PO ONE (21:41)
--- NOTE | 2019-07-17 21:58 | Emergency Department Report ---
ED General Adult HPI - General Chief complaint: Skin/Abscess/Foreign Body Stated complaint: FACAIL SWELLING,HEAD PAIN Time Seen by Provider: 07/17/19 21:31 Source: patient Mode of arrival: Ambulatory Limitations: No Limitations - History of Present Illness Initial comments: The patient presents to the emergency department with complaint of an abscess to the upper lip. The patient states while at work today the abscess burst and had white pus draining from it. Patient denies fever, headache, chest pain. - Related Data Previous Rx's Medication Instructions Recorded Last Taken Type Cephalexin [Keflex] 1 gram PO QID 10 Days capsule 03/10/19 Unknown Rx Doxycycline Hyclate [Doxycycline 100 mg PO Q12HR 10 Days tab 03/10/19 Unknown Rx Hyclate TAB] Famotidine [Pepcid] 20 mg PO BID #60 tablet 03/10/19 Unknown Rx HYDROcodone/APAP 5-325 [[place] 1 each PO Q4H PRN #8 tablet 03/10/19 Unknown Rx 5-325 mg TAB] Ibuprofen [Motrin 600 MG tab] 600 mg PO Q6H PRN tablet 03/10/19 Unknown Rx Insulin NPH/Regular [NovoLIN 70/30] 28 unit SUB-Q BIDDIAB units 03/10/19 Unknown Rx Insulin Regular, Human [HumuLIN R] 0 units SUB-Q ACHS units 03/10/19 Unknown Rx amLODIPine 5 mg PO QDAY #30 tablet 03/10/19 Unknown Rx Doxycycline Hyclate [Doxycycline 100 mg PO Q12HR 7 Days #14 tab 04/16/19 Unknown Rx Hyclate TAB] cephALEXin [Keflex] 500 mg PO Q12HR 7 Days #14 cap 04/16/19 Unknown Rx Ibuprofen [Motrin 800 MG tab] 800 mg PO Q8HR PRN #15 tablet 04/18/19 Unknown Rx Naproxen [Naprosyn] 500 mg PO BID PRN #20 tablet 07/17/19 Unknown Rx Sulfamethoxazole/Trimethoprim 2 each PO BID #28 tablet 07/17/19 Unknown Rx [Bactrim DS TAB] Allergies Allergy/AdvReac Type Severity Reaction Status Date / Time No Known Allergies Allergy Verified 03/06/19 09:42 ED Review of Systems ROS: Stated complaint: FACAIL SWELLING,HEAD PAIN Other details as noted in HPI Constitutional: denies: chills, fever Eyes: denies: eye pain, eye discharge, vision change ENT: denies: ear pain, throat pain Respiratory: denies: cough, shortness of breath, wheezing Cardiovascular: denies: chest pain, palpitations Endocrine: no symptoms reported Gastrointestinal: denies: abdominal pain, nausea, diarrhea Genitourinary: denies: urgency, dysuria Musculoskeletal: denies: back pain, joint swelling, arthralgia Skin: denies: rash, lesions Neurological: denies: headache, weakness, paresthesias Psychiatric: denies: anxiety, depression Hematological/Lymphatic: denies: easy bleeding, easy bruising ED Past Medical Hx - Past Medical History Previous Medical History?: Yes Hx Hypertension: Yes (Lost 100 pounds and is off meds) Hx Congestive Heart Failure: Yes Hx Diabetes: Yes Hx Dementia: Yes (diet controlled) - Surgical History Additional Surgical History: spider bite Sx - Social History Smoking Status: Never Smoker Substance Use Type: None - Medications Home Medications: Home Medications Medication Instructions Recorded Confirmed Last Taken Type Cephalexin [Keflex] 1 gram PO QID 10 Days capsule 03/10/19 Unknown Rx Doxycycline Hyclate [Doxycycline 100 mg PO Q12HR 10 Days tab 03/10/19 Unknown Rx Hyclate TAB] Famotidine [Pepcid] 20 mg PO BID #60 tablet 03/10/19 Unknown Rx HYDROcodone/APAP 5-325 [[place] 1 each PO Q4H PRN #8 tablet 03/10/19 Unknown Rx 5-325 mg TAB] Ibuprofen [Motrin 600 MG tab] 600 mg PO Q6H PRN tablet 03/10/19 Unknown Rx Insulin NPH/Regular [NovoLIN 70/30] 28 unit SUB-Q BIDDIAB units 03/10/19 Unknown Rx Insulin Regular, Human [HumuLIN R] 0 units SUB-Q ACHS units 03/10/19 Unknown Rx amLODIPine 5 mg PO QDAY #30 tablet 03/10/19 Unknown Rx Doxycycline Hyclate [Doxycycline 100 mg PO Q12HR 7 Days #14 tab 04/16/19 Unk nown Rx Hyclate TAB] cephALEXin [Keflex] 500 mg PO Q12HR 7 Days #14 cap 04/16/19 Unknown Rx Ibuprofen [Motrin 800 MG tab] 800 mg PO Q8HR PRN #15 tablet 04/18/19 Unknown Rx Naproxen [Naprosyn] 500 mg PO BID PRN #20 tablet 07/17/19 Unknown Rx Sulfamethoxazole/Trimethoprim 2 each PO BID #28 tablet 07/17/19 Unknown Rx [Bactrim DS TAB] ED Physical Exam - General Limitations: No Limitations General appearance: alert, in no apparent distress - Head Head exam: Present: atraumatic, normocephalic - Eye Eye exam: Present: normal appearance - ENT ENT exam: Present: mucous membranes moist, other (small draining abscess of the upper lip) - Neck Neck exam: Present: normal inspection - Respiratory Respiratory exam: Present: normal lung sounds bilaterally. Absent: respiratory distress - Cardiovascular Cardiovascular Exam: Present: regular rate, normal rhythm. Absent: systolic murmur, diastolic murmur, rubs, gallop - GI/Abdominal GI/Abdominal exam: Present: soft, normal bowel sounds - Rectal Rectal exam: Present: deferred - Extremities Exam Extremities exam: Present: normal inspection - Back Exam Back exam: Present: normal inspection - Neurological Exam Neurological exam: Present: alert, oriented X3 - Psychiatric Psychiatric exam: Present: normal affect, normal mood - Skin Skin exam: Present: warm, dry, intact, normal color. Absent: rash ED Course Vital Signs 07/17/19 07/17/19 07/17/19 18:42 19:24 21:00 Temperature 98.5 F Pulse Rate 101 H 99 H 96 H Respiratory 18 18 20 Rate Blood Pressure 181/108 195/129 Blood Pressure 194/119 [Right] O2 Sat by Pulse 98 96 Oximetry 07/17/19 21:10 Temperature Pulse Rate Respiratory 18 Rate Blood Pressure Blood Pressure [Right] O2 Sat by Pulse 98 Oximetry ED Medical Decision Making - Lab Data Result diagrams: 07/17/19 19:28 07/17/19 19:28 Lab Results 07/17/19 07/17/19 07/17/19 Range/Units 19:28 19:28 Unknown WBC 10.7 (4.5-11.0) K/mm3 RBC 5.32 H (3.65-5.03) M/mm3 Hgb 16.1 H (11.8-15.2) gm/dl Hct 47.2 H (35.5-45.6) % MCV 89 (84-94) fl MCH 30 (28-32) pg MCHC 34 (32-34) % RDW 12.6 L (13.2-15.2) % Plt Count 243 (140-440) K/mm3 Lymph % (Auto) 24.5 (13.4-35.0) % [place] % (Auto) 9.7 H (0.0-7.3) % Eos % (Auto) 1.3 (0.0-4.3) % Baso % (Auto) 0.6 (0.0-1.8) % Lymph # 2.6 (1.2-5.4) K/mm3 [place] # 1.0 H (0.0-0.8) K/mm3 Eos # 0.1 (0.0-0.4) K/mm3 Baso # 0.1 (0.0-0.1) K/mm3 Seg Neutrophils % 63.9 (40.0-70.0) % Seg Neutrophils # 6.8 (1.8-7.7) K/mm3 Sodium 141 (137-145) mmol/L Potassium 4.8 (3.6-5.0) mmol/L Chloride 100.8 (98-107) mmol/L Carbon Dioxide 26 (22-30) mmol/L Anion Gap 19 mmol/L BUN 12 (9-20) mg/dL Creatinine 0.8 (0.8-1.5) mg/dL Estimated GFR > 60 ml/min BUN/Creatinine Ratio 15 % Glucose 249 H (75-100) mg/dL Calcium 9.7 (8.4-10.2) mg/dL Total Bilirubin 0.30 (0.1-1.2) mg/dL AST 16 (5-40) units/L ALT 18 (7-56) units/L Alkaline Phosphatase 88 (35-129) units/L Total Protein 8.1 (6.3-8.2) g/dL Albumin 4.5 (3.9-5) g/dL Albumin/Globulin Ratio 1.3 % Urine Color Yellow (Yellow) Urine Turbidity Clear (Clear) Urine pH 5.0 (5.0-7.0) Ur Specific [place] 1.046 H (1.003-1.030) Urine Protein <15 mg/dl (Negative) mg/dL Urine Glucose (UA) >=500 (Negative) mg/dL Urine Ketones 20 (Negative) mg/dL Urine Blood Neg (Negative) Urine Nitrite Neg (Negative) Urine Bilirubin Neg (Negative) Urine Urobilinogen < 2.0 (<2.0) mg/dL Ur Leukocyte Esterase Neg (Negative) Urine WBC (Auto) 1.0 (0.0-6.0) /HPF Urine RBC (Auto) 2.0 (0.0-6.0) /HPF Urine Mucus Few /HPF Critical care attestation.: If time is entered above; I have spent that time in minutes in the direct care of this critically ill patient, excluding procedure time. ED Disposition Clinical Impression: Abscess Disposition: - TO HOME OR SELFCARE Is pt being admited?: No Does the pt Need Aspirin: No Condition: Stable Instructions: Abscess (ED) Additional Instructions: return if worse Referrals: [facility] [Provider Group] - 3-5 Days [facility] [Provider Group] - 3-5 Days Time of Disposition: 21:57
[2019-07-17 22:38] VITALS: BP 170/92
== END 2019-07-17 22:37 | disposition home or self-care (01) ==
LOC: ED 18:22
DX: K13.0 Diseases of lips (principal); I11.0 Hypertensive heart disease with heart failure; I50.9 Heart failure, unspecified; E11.9 Type 2 diabetes mellitus without complications; F03.90 Unspecified dementia, unspecified severity, without behavioral disturbance, psychotic disturbance, mood disturbance, and anxiety; Z79.899 Other long term (current) drug therapy
CPT/HCPCS: 36415; 80053; 81001; 85025; Q0162

== ENCOUNTER 2019-11-15 08:13 | Emergency (ER) | payer SELFPAY ==
--- NOTE | 2019-11-15 11:06 | Emergency Department Report ---
- General Chief complaint: Skin/Abscess/Foreign Body Stated complaint: SORE LT BUTTOCK Time Seen by Provider: 11/15/19 10:47 Source: patient Mode of arrival: Ambulatory Limitations: No Limitations - History of Present Illness Initial comments: This is a 49-year-old male nontoxic, well nourished in appearance, no acute signs of distress presents to the ED with c/o of redness, slight swelling, and pain to left buttock area x2 days. Patient denies any pus or drainage. Patient denies any fever, chills, nausea, vomiting, chest pain, shortness of breath, headache or stiff neck. Patient denies any allergies. -: days(s) Location: buttocks Severity: mild Severity scale (0 -10): 8 Quality: aching Consistency: constant Improves with: none Worsens with: none Context: none Associated symptoms: denies other symptoms Treatments Prior to Arrival: none - Related Data Previous Rx's Medication Instructions Recorded Last Taken Type Cephalexin [Keflex] 1 gram PO QID 10 Days capsule 03/10/19 Unknown Rx Doxycycline Hyclate [Doxycycline 100 mg PO Q12HR 10 Days tab 03/10/19 Unknown Rx Hyclate TAB] Famotidine [Pepcid] 20 mg PO BID #60 tablet 03/10/19 Unknown Rx HYDROcodone/APAP 5-325 [Crawford 1 each PO Q4H PRN #8 tablet 03/10/19 Unknown Rx 5-325 mg TAB] Ibuprofen [Motrin 600 MG tab] 600 mg PO Q6H PRN tablet 03/10/19 Unknown Rx Insulin NPH/Regular [NovoLIN 70/30] 28 unit SUB-Q BIDDIAB units 03/10/19 Unknown Rx Insulin Regular, Human [HumuLIN R] 0 units SUB-Q ACHS units 03/10/19 Unknown Rx amLODIPine 5 mg PO QDAY #30 tablet 03/10/19 Unknown Rx Doxycycline Hyclate [Doxycycline 100 mg PO Q12HR 7 Days #14 tab 04/16/19 Unknown Rx Hyclate TAB] cephALEXin [Keflex] 500 mg PO Q12HR 7 Days #14 cap 04/16/19 Unknown Rx Ibuprofen [Motrin 800 MG tab] 800 mg PO Q8HR PRN #15 tablet 04/18/19 Unknown Rx Naproxen [Naprosyn] 500 mg PO BID PRN #20 tablet 07/17/19 Unknown Rx Sulfamethoxazole/Trimethoprim 2 each PO BID #28 tablet 07/17/19 Unknown Rx [Bactrim DS TAB] Acetaminophen/Codeine [Tylenol 1 tab PO Q6H PRN #12 tab 11/15/19 Unknown Rx /Codeine # 3 tab] Clindamycin [Clindamycin CAP] 300 mg PO Q8H #21 cap 11/15/19 Unknown Rx Allergies Allergy/AdvReac Type Severity Reaction Status Date / Time No Known Allergies Allergy Verified 03/06/19 09:42 Abscess Boil HPI - HPI Chief Complaint: Skin/Abscess/Foreign Body Stated Complaint: SORE LT BUTTOCK Time Seen by Provider: 11/15/19 10:47 Home Medications: Previous Rx's Medication Instructions Recorded Last Taken Type Cephalexin [Keflex] 1 gram PO QID 10 Days capsule 03/10/19 Unknown Rx Doxycycline Hyclate [Doxycycline 100 mg PO Q12HR 10 Days tab 03/10/19 Unknown Rx Hyclate TAB] Famotidine [Pepcid] 20 mg PO BID #60 tablet 03/10/19 Unknown Rx HYDROcodone/APAP 5-325 [Crawford 1 each PO Q4H PRN #8 tablet 03/10/19 Unknown Rx 5-325 mg TAB] Ibuprofen [Motrin 600 MG tab] 600 mg PO Q6H PRN tablet 03/10/19 Unknown Rx Insulin NPH/Regular [NovoLIN 70/30] 28 unit SUB-Q BIDDIAB units 03/10/19 Unknown Rx Insulin Regular, Human [HumuLIN R] 0 units SUB-Q ACHS units 03/10/19 Unknown Rx amLODIPine 5 mg PO QDAY #30 tablet 03/10/19 Unknown Rx Doxycycline Hyclate [Doxycycline 100 mg PO Q12HR 7 Days #14 tab 04/16/19 Unknown Rx Hyclate TAB] cephALEXin [Keflex] 500 mg PO Q12HR 7 Days #14 cap 04/16/19 Unknown Rx Ibuprofen [Motrin 800 MG tab] 800 mg PO Q8HR PRN #15 tablet 04/18/19 Unknown Rx Naproxen [Naprosyn] 500 mg PO BID PRN #20 tablet 07/17/19 Unknown Rx Sulfamethoxazole/Trimethoprim 2 each PO BID #28 tablet 07/17/19 Unknown Rx [Bactrim DS TAB] Acetaminophen/Codeine [Tylenol 1 tab PO Q6H PRN #12 tab 11/15/19 Unknown Rx /Codeine # 3 tab] Clindamycin [Clindamycin CAP] 300 mg PO Q8H #21 cap 11/15/19 Unknown Rx Allergies/Adverse Reactions: Allergies Allergy/AdvReac Type Severity Reaction Status Date / Time No Known Allergies Allergy Verified 03/06/19 09:42 ED Review of Systems ROS: Stated complaint: SORE LT BUTTOCK Other details as noted in HPI Constitutional: denies: chills, fever Eyes: denies: eye pain, eye discharge, vision change ENT: denies: ear pain, throat pain Respiratory: denies: cough, shortness of breath, wheezing Cardiovascular: denies: chest pain, palpitations Endocrine: no symptoms reported Gastrointestinal: denies: abdominal pain, nausea, diarrhea Genitourinary: denies: urgency, dysuria Musculoskeletal: denies: back pain, joint swelling, arthralgia Skin: denies: rash, lesions Neurological: denies: headache, weakness, paresthesias Psychiatric: denies: anxiety, depression Hematological/Lymphatic: denies: easy bleeding, easy bruising ED Past Medical Hx - Past Medical History Previous Medical History?: Yes Hx Hypertension: Yes (Lost 100 pounds and is off meds) Hx Congestive Heart Failure: Yes Hx Diabetes: Yes Hx Dementia: Yes (diet controlled) - Surgical History Past Surgical History?: Yes Additional Surgical History: spider bite Sx - Social History Smoking Status: Never Smoker Substance Use Type: None - Medications Home Medications: Home Medications Medication Instructions Recorded Confirmed Last Taken Type Cephalexin [Keflex] 1 gram PO QID 10 Days capsule 03/10/19 Unknown Rx Doxycycline Hyclate [Doxycycline 100 mg PO Q12HR 10 Days tab 03/10/19 Unknown Rx Hyclate TAB] Famotidine [Pepcid] 20 mg PO BID #60 tablet 03/10/19 Unknown Rx HYDROcodone/APAP 5-325 [Crawford 1 each PO Q4H PRN #8 tablet 03/10/19 Unknown Rx 5-325 mg TAB] Ibuprofen [Motrin 600 MG tab] 600 mg PO Q6H PRN tablet 03/10/19 Unknown Rx Insulin NPH/Regular [NovoLIN 70/30] 28 unit SUB-Q BIDDIAB units 03/10/19 Unknown Rx Insulin Regular, Human [HumuLIN R] 0 units SUB-Q ACHS units 03/10/19 Unknown Rx amLODIPine 5 mg PO QDAY #30 tablet 03/10/19 Unknown Rx Doxycycline Hyclate [Doxycycline 100 mg PO Q12HR 7 Days #14 tab 04/16/19 Unknown Rx Hyclate TAB] cephALEXin [Keflex] 500 mg PO Q12HR 7 Days #14 cap 04/16/19 Unknown Rx Ibuprofen [Motrin 800 MG tab] 800 mg PO Q8HR PRN #15 tablet 04/18/19 Unknown Rx Naproxen [Naprosyn] 500 mg PO BID PRN #20 tablet 07/17/19 Unknown Rx Sulfamethoxazole/Trimethoprim 2 each PO BID #28 tablet 07/17/19 Unknown Rx [Bactrim DS TAB] Acetaminophen/Codeine [Tylenol 1 tab PO Q6H PRN #12 tab 11/15/19 Unknown Rx /Codeine # 3 tab] Clindamycin [Clindamycin CAP] 300 mg PO Q8H #21 cap 11/15/19 Unknown Rx ED Physical Exam - General Limitations: No Limitations General appearance: alert, in no apparent distress - Head Head exam: Present: atraumatic, normocephalic - Neck Neck exam: Present: normal inspection, full ROM. Absent: tenderness, meningismus, lymphadenopathy - Extremities Exam Extremities exam: Present: normal inspection, full ROM - Back Exam Back exam: Present: normal inspection, full ROM - Neurological Exam Neurological exam: Present: alert, oriented X3, normal gait - Psychiatric Psychiatric exam: Present: normal affect, normal mood - Skin Skin exam: Present: warm, dry, intact, normal color. Absent: rash - Expanded Skin Exam Expanded 1 - left 2 cm x 2cm redness and nodular swelling with no induration or fluctuance. ED Course Vital Signs 11/15/19 08:27 Temperature 98.7 F Pulse Rate 104 H Respiratory 16 Rate Blood Pressure 154/100 O2 Sat by Pulse 22 L Oximetry - Reevaluation(s) Reevaluation #1: 11/15/19 11:05 Patient is speaking in full sentences with no signs of distress noted. ED Medical Decision Making - Medical Decision Making This is a 49-year-old male that presents with cellulitis. Patient is stable and was examined by me. There is no induration, fluctuance. There is some swelling that is nodular but no signs of abscess formation. The area has been outlined with a permanent marker and patient was instructed to observe symptoms of increased redness or swelling and to return to the ER if this does occur. I will discharge patient with Clinda. Patient was referred to Follow-up with a primary care doctor in 3-5 days or if symptoms worsen and continue return to emergency room as soon as possible. At time of discharge, the patient does not seem toxic or ill in appearance. No acute signs of distress noted. Patient agr ees to discharge treatment plan of care. No further questions noted by the patient. Critical care attestation.: If time is entered above; I have spent that time in minutes in the direct care of this critically ill patient, excluding procedure time. ED Disposition Clinical Impression: Cellulitis of left buttock Disposition: [id number] TO HOME OR SELFCARE Is pt being admited?: No Does the pt Need Aspirin: No Condition: Stable Instructions: Cellulitis (ED), Acetaminophen/Codeine (By mouth) Additional Instructions: Follow-up with a primary care doctor in 3-5 days or if symptoms worsen and continue return to emergency room as soon as possible. Do not operate any machinery while taking Tylenol with codeine as this may cause drowsiness. Prescriptions: Clindamycin [Clindamycin CAP] 300 mg PO Q8H #21 cap Acetaminophen/Codeine [Tylenol /Codeine # 3 tab] 1 tab PO Q6H PRN #12 tab PRN Reason: Pain , Severe (7-10) Referrals: ALDAIR JACOBS MD [Primary Care Provider] - 3-5 Days BISMARK GARCIA MD [Staff Physician] - 3-5 Days [facility] [Outside] - 3-5 Days Forms: Work/School Release Form(ED)
[2019-11-15 11:30] VITALS: BP 150/96
== END 2019-11-15 11:29 | disposition home or self-care (01) ==
LOC: ED 08:13
DX: L03.317 Cellulitis of buttock (principal); I11.0 Hypertensive heart disease with heart failure; I50.9 Heart failure, unspecified; E11.9 Type 2 diabetes mellitus without complications; F03.90 Unspecified dementia, unspecified severity, without behavioral disturbance, psychotic disturbance, mood disturbance, and anxiety; Z79.899 Other long term (current) drug therapy; Z98.890 Other specified postprocedural states